=== PATIENT | female | born 1975 | race African-American/Black ===

== ENCOUNTER 2020-08-16 09:49 | Outpatient (CLI) | payer BC, SELFPAY ==
--- NOTE | ~2020-08-16 | US_ITS ---
EXAMINATION: US venous doppler [facility] DATE: 08/16/2020 10:18 INDICATION: Left lower limb pain TECHNIQUE: Jaquez scale images without and with compression and Doppler images of the left lower extrem ity veins were obtained. COMPARISON: None FINDINGS: The left common femoral vein, profunda femoral vein, femoral vein, popliteal vein, peroneal trunk, posterior tibial veins, and greater saphenous vein are patent. IMPRESSION: 1. Patent left lower extremity veins. No evidence of deep venous thrombosis. Reviewed, dictated and finalized at location A.
== END 2020-08-16 09:50 | disposition home or self-care (01) ==
PROVIDERS: PCP Family Medicine; Visit Provider Family Medicine
DX: M79.605 Pain in left leg (principal)
CPT/HCPCS: 93971

== ENCOUNTER 2020-08-19 17:09 | Emergency (ER) | payer BC, SELFPAY ==
--- NOTE | ~2020-08-19 | XR_ITS ---
EXAMINATION: XR knee LT min 4V EXAM DATE: 08/19/2020 18:03 INDICATION: Prior knee pain x 2 weeks/ slipped fell x 1 day. Initial encounter. TECHNIQUE: Left knee frontal, crosstable lateral, orthogonal oblique projections for interpretation. There is no prior study for comparison. FINDINGS: No evidence osteochondral defect or joint body in the left knee joint. Small joint effusio n. There are no acute fractures or dislocations identified. There is no subcutaneous gas. Some subc utaneous edema over the patellar tendon. There are no radiopaque foreign bodies. There is lateral va ricosity. There is mild tricompartmental primary osteoarthritis. IMPRESSION: 1. No left knee fracture. 2. Mild osteoarthritis. 3. Small joint effusion. Reviewed, dictated and finalized at location A.
[2020-08-19 17:24] VITALS: BP 135/84; PULSE 64; RESP 16; TEMP 36.2; O2SAT 100
--- NOTE | 2020-08-19 19:37 | ED.LOWEXIN ---
HPI - Extremity Injury (Lower) General Chief Complaint: Extremity Injury, Lower Stated Complaint: Left Knee Pain Time Seen by Provider: 08/19/20 18:59 Source: patient and RN notes reviewed Mode of arrival: other (Crutches) Limitations: no limitations History of Present Illness HPI Narrative: Patient presents today complaining of left knee pain x3 weeks. She injured her left knee again last night when she slipped and twisted it again. She has been nonweightbearing and using crutches today. She has an orthopedic appointment in 3 days, but the pain is so bad that she wanted to come to urgent care today and be evaluated. States the pain is mostly posterior. She has been using ice without relief. She currently rates her pain 12/01. MD complaint: knee injury Related Data Allergies Allergy/AdvReac Type Severity Reaction Status Date / Time amoxicillin [From Amoxil] Allergy Dyspnea / Verified 08/19/20 17:46 SOB aspirin Allergy Rash Verified 08/19/20 17:46 blueberry Allergy Swelling Verified 08/19/20 17:46 codeine Allergy Dyspnea / Verified 08/19/20 17:46 SOB Review of Systems Review of Systems: Narrative: CONSTITUTIONAL: Denies body aches, fever, chills, or sweats. EYES: Denies visual changes, redness, or discharge. ENT: Denies rhinorrhea, congestion, sore throat, or otalgia. CARDIOVASCULAR: Denies chest pain, palpitations, or edema. RESPIRATORY: Denies cough or dyspnea. GASTROINTESTINAL: Denies abdominal pain, nausea, vomiting, or diarrhea. GENITOURINARY: Denies dysuria or hematuria. SKIN: Denies rash, itching, or wounds. MUSCULOSKELETAL: Denies back pain, or myalgia.+ Left knee pain NEUROLOGIC: Denies headache, numbness, tingling, or weakness. PSYCH: Denies depression or anxiety. PMFSH Social History Social History Gender identity (if verbalized by the patient): Female Comments At time of signature, I have reviewed and agree with nursing past medical, surgical, social and family history unless otherwise noted. Please see nursing chart for further information. There is no relevant family history pertinent to the presenting complaint Exam Narrative: Exam Narrative: GENERAL: Well-appearing, well-nourished, and in no acute distress. HEAD: Normocephalic, atraumatic. EYES: EOMI. No redness or drainage. Conjunctivae normal. ENT: Mucous membranes pink and moist. NECK: Normal AROM. CHEST: No respiratory distress. EXTREMITIES: Left knee: Tenderness to the medial joint line and posterior knee. Difficult to assess edema due to patient's body habitus. Distal sensation intact. Capillary refill normal. Pedal pulse normal. Full range of motion of the ankle and all toes. Any movement of the knee causes patient pain. SKIN: Warm, dry, no rash. Capillary refill normal. Normal skin turgor. NEURO: No focal deficits. Alert and oriented x3. Gait steady. PSYCH: Normal affect. No signs of depression or anxiety. Course Vital Signs Vital signs: Vital Signs Temperature 97.2 F L 08/19/20 17:24 Pulse Rate 64 08/19/20 17:24 Respiratory Rate 16 08/19/20 17:24 Blood Pressure 135/84 08/19/20 17:24 Pulse Oximetry 100 08/19/20 17:24 Temperature 97.2 F L 08/19/20 17:24 Pulse Rate 64 08/19/20 17:24 Respiratory Rate 16 08/19/20 17:24 Blood Pressure 135/84 08/19/20 17:24 Pulse Oximetry 100 08/19/20 17:24 Reviewed. Pt has been instructed to follow up with her PCP regarding her elevated blood pressure today. Procedures Orthopedic Splinting/Casting Injury #1: Splinting/Casting Date: 08/19/20 Splinting/Casting Time: 19:15 Side: left Lower Extremity Immobilizer: knee immobilizer Pre-Procedure Neuro Vascular Exam: normal Post-Procedure Neuro Vascular Exam: normal Additional Comments: Placed by RN and star MDM - Extremity Injury (Lower) Differential Diagnosis Differential diagnosis: Likely other (Knee sprain, ligamental injury, meniscus tear, burs
== END 2020-08-19 19:20 | disposition home or self-care (01) ==
PROVIDERS: Emergency Provider Nurse Practitioner; PCP Family Medicine
DX: S89.92XA Unspecified injury of left lower leg, initial encounter (principal); X50.9XXA Other and unspecified overexertion or strenuous movements or postures, initial encounter
CPT/HCPCS: 73564; 99213; G0463; L1830

== ENCOUNTER 2020-09-03 15:25 | Outpatient (CLI) | payer BC, SELFPAY ==
--- NOTE | ~2020-09-03 | MM_ITS ---
EXAMINATION: MM screening chalo BI w roddy HISTORY: Screening mammogram TECHNIQUE: Craniocaudal and mediolateral oblique 3-D tomosynthesis images were obtained and synthetic 2-D images were generated. CAD analysis was submitted and interpreted. COMPARISON: None, baseline BREAST PARENCHYMAL COMPOSITION: There are scattered areas of fibroglandular density. FINDINGS: There is no evidence of suspicious mass, calcification, or architectural distortion to sugg est malignancy in either breast. IMPRESSION: 1. No mammographic evidence of malignancy. 2. Recommend routine screening mammography in one year. BI-RADS Category 1: Negative Reviewed, dictated and finalized at location A.
== END 2020-09-03 15:26 | disposition home or self-care (01) ==
LOC: ANHIMG 15:28
PROVIDERS: PCP Family Medicine; Visit Provider Family Medicine
DX: Z12.31 Encounter for screening mammogram for malignant neoplasm of breast (principal)
CPT/HCPCS: 77063; 77067

== ENCOUNTER 2020-11-08 12:47 | Outpatient (CLI) | payer BC, SELFPAY ==
--- NOTE | ~2020-11-08 | US_ITS ---
EXAMINATION: US FNA w image guidance, US FNA additional DATE: 11/08/2020 14:00 INDICATION: Nontoxic thyroid nodules COMPARISON: Outside institution ultrasound dated 10/11/2020. TECHNIQUE: A time-out was performed to verify the patient's name, date of , and procedure to be performed . The procedure and its benefits and risks were discussed with the patient. Risks specifically discus sed included bleeding and infection. The patient understood the risks and agreed to proceed. Attentio n was first turned to the left thyroid nodule. The left neck was prepped and draped in the usual ster ile manner. 3 mL 1% lidocaine was used for local anesthesia. 6 passes were made with a 25G needle i nto the lesion. Appropriate needle location was documented with continuous sonographic guidance. A sterile bandage was applied. Attention was then turned to the right thyroid nodule. The right side of the neck was sterilely prepped and draped. 3 mL 1% lidocaine was used for local anesthesia. 6 passe s were made with a 25G needle into the lesion. Appropriate needle location was documented with di nuous sonographic guidance. A sterile bandage was applied. There were no immediate complications. FINDINGS: Grayscale ultrasound images demonstrate biopsy needles advanced into first the previously noted 5.5 c m solid TI-RADS 3 left thyroid nodule. Subsequent images demonstrate biopsy needles advanced into the previous noted 4.3 cm TI-RADS 3 right thyroid nodule. IMPRESSION: 1. Successful ultrasound-guided fine needle aspiration of the previously noted 5.5 cm left thyroid a nd 4.3 cm right thyroid nodules. Reviewed, dictated and finalized at location A. IMPRESSION: 1. Successful ultrasound-guided fine needle aspiration of the previously noted 5.5 cm left thyroid and 4.3 cm right thyroid nodules.
== END 2020-11-08 12:48 | disposition home or self-care (01) ==
PROVIDERS: PCP Family Medicine
DX: E04.1 Nontoxic single thyroid nodule (principal)
CPT/HCPCS: 10005; 10006; 88173; 88305

== ENCOUNTER 2021-02-18 11:43 | Emergency (ER) | payer BC, SELFPAY ==
[2021-02-18 11:57] VITALS: BP 138/88; PULSE 73; RESP 16; TEMP 37; O2SAT 100
--- NOTE | 2021-02-18 12:21 | ED.URI ---
HPI - URI/Sore Throat General Chief Complaint: Upper Respiratory Infection Stated Complaint: cold sx Time Seen by Provider: 02/18/21 12:21 Source: patient, RN notes reviewed and old records reviewed Mode of arrival: ambulatory Limitations: no limitations History of Present Illness HPI Narrative: 45-year-old female presents to the [facility] with complaints of shortness of breath cold-like symptoms, sweating all the time, cough, generalized body aches. Patient states that she started symptoms on the went [place] the mall and tested for Covid on the , states that it was negative. Patient states that she is Covid vaccinated. Is not flu vaccinated. Has tried there a few DayQuil and NyQuil with minimal relief. Related Data Home Medications Medication Instructions Recorded Confirmed cyanocobalamin (vitamin B-12) mcg 02/18/21 ergocalciferol (vitamin D2) 02/18/21 escitalopram oxalate mg 02/18/21 hydrochlorothiazide 02/18/21 omeprazole 02/18/21 valacyclovir 02/18/21 Allergies Allergy/AdvReac Type Severity Reaction Status Date / Time amoxicillin [From Amoxil] Allergy Dyspnea / Verified 08/19/20 17:46 SOB aspirin Allergy Rash Verified 08/19/20 17:46 blueberry Allergy Swelling Verified 08/19/20 17:46 codeine Allergy Dyspnea / Verified 08/19/20 17:46 SOB Review of Systems Review of Systems: All systems reviewed & are unremarkable except as noted in HPI and below Constitutional: Constitutional: Reports as per HPI, Reports chills, Reports fatigue and Reports fever(s) Eyes: Eyes: Reports no additional eye complaints ENT: Reports as per HPI and Reports nasal congestion Cardiovascular: Cardiovascular: Reports no additional cardiovascular complaints and Denies chest pain Respiratory: Respiratory: Reports as per HPI, Denies chest congestion, Reports cough, Reports dyspnea and Denies wheezing Gastrointestinal: Gastrointestinal: Reports no additional gastrointestinal complaints, Denies abdominal pain, Denies nausea and Denies vomiting Musculoskeletal: Musculoskeletal: Reports as per HPI and Reports myalgias Integumentary/Breasts: Skin/Breast: Reports system reviewed and no additional complaints, except as docu Neurologic: Reports system reviewed and no additional complaints, except as documented Psychiatric: Psychiatric: Reports no additional psychiatric complaints Allergic/Immunologic: Allergic/Immunologic: Reports no additional allergic/immunologic complaints PMFSH Past Medical History Medical History Anxiety and depression H/O gastroesophageal reflux (GERD) Hypertension Social History Social History Gender identity (if verbalized by the patient): Female Comments At the time of my signature, I reviewed and agree with the nursing past medical, surgical, social, and family history. There is no relevant family history pertinent to the patient complaint. Exam Const: General: healthy appearing, no acute distress and alert Nutritional Appearance: well nourished and obese Orientation/consciousness: patient oriented x3 Limitations: no limitations HENMT: Head: normal to inspection Ears: external ears normal, TM's normal bilaterally and EAC's normal Eyes: Conjunctivae: conjunctivae normal Pupils: Equal, round and reactive pupils present Neck: Neck: normal visual inspection, no lymphadenopathy and no meningeal signs Chest: Chest palpation & inspection: normal inspection of the chest Resp: Effort & Inspection: normal respiratory effort and no use of accessory muscles Auscultation: clear to auscultation bilaterally, no crackles, no rales, no rhonchi and no wheezes Cardio: Rate: regular rate GI: GI Palp: Yes Soft to palpation and No Tenderness to palpation present (GI) Back/Spine/Pelvis: Back: no CVA tenderness Skin: General skin exam: normal color Rashes: no rashes Wounds: no wounds Neur
[2021-02-19 13:33] LABS: SARS-CoV-2 RNA PCR Negative
== END 2021-02-18 12:52 | disposition home or self-care (01) ==
PROVIDERS: Emergency Provider Nurse Practitioner
DX: B34.9 Viral infection, unspecified (principal); Z20.822 Contact with and (suspected) exposure to COVID-19; K21.9 Gastro-esophageal reflux disease without esophagitis; I10 Essential (primary) hypertension; F41.9 Anxiety disorder, unspecified; F32.A Depression, unspecified
CPT/HCPCS: 87804; 99213; C9803; G0463; U0003; U0005

== ENCOUNTER 2021-09-23 21:20 | Inpatient (IN) | payer BC, SELFPAY ==
--- NOTE | ~2021-09-23 | XR_ITS ---
EXAMINATION: XR abdomen obstructive series DATE: 09/26/2021 07:56 INDICATION: Small bowel obstruction. TECHNIQUE: Upright and supine views of the abdomen on 3 radiographs were obtained. COMPARISON: CT abdomen and pelvis 09/23/2021, abdomen radiographs 09/25/2021 FINDINGS: There are no dilated loops of bowel. The nasogastric tube tip is in the distal stomach. No free intraperitoneal gas. Surgical clips in the right upper quadrant are likely from cholecystectomy. There are inserts in the expected area of the fallopian tubes. IMPRESSION: 1. Normal bowel gas pattern. Reviewed, dictated and finalized at location A.
--- NOTE | ~2021-09-23 | XR_ITS ---
EXAMINATION: XR abdomen NG/feed tube insert DATE: 09/23/2021 23:57 INDICATION: Nasogastric tube placement. TECHNIQUE: An upright view of the abdomen was obtained. COMPARISON: CT abdomen and pelvis 09/23/2021 FINDINGS: The lower abdomen is excluded. There are dilated loops of small bowel. The colon is decompr essed. The nasogastric tube tip is in the stomach. IMPRESSION: 1. Nasogastric tube tip in the stomach. 2. Dilated small bowel, consistent with obstruction. Reviewed, dictated and finalized at location A.
--- NOTE | ~2021-09-23 | CT_ITS ---
EXAMINATION: CT abdomen pelvis w con DATE: 09/23/2021 22:42 INDICATION: diffuse abd pain, constipation, n/v TECHNIQUE: Computed tomography (CT) of the abdomen and pelvis was performed with 100 mL Omnipaque-350 intravenous contrast. Automated exposure control and iterative reconstruction technique were employe d. The dose-length product was 1410.10 mGy-cm. COMPARISON: None. FINDINGS: Lower thorax: Unremarkable Liver: Normal. Biliary/Gallbladder: Gallbladder is absent. No bile duct dilation. Pancreas: No mass or duct dilation. Spleen: Normal. Adrenals:No mass. Kidneys: No mass, stone, or hydronephrosis. GI tract: Diffusely dilated small bowel, transition point in the right lower quadrant in the terminal ileum. Normal appendix. Prior gastric bypass. Mesentery/Peritoneum: No ascites, mass, or free air. Retroperitoneum: No mass. Pelvis: Pelvic organs are within normal limits. Tubal ligation. Soft Tissues: Soft tissues and body wall unremarkable. Bones: No acute osseous finding. IMPRESSION: Distal small bowel obstruction, transition point in the terminal ileum. Reviewed, dictated and finalized at location K.
--- NOTE | ~2021-09-23 | XR_ITS ---
EXAMINATION: XR abdomen obstructive series DATE: 09/25/2021 09:21 INDICATION: Follow-up possible small bowel obstruction. TECHNIQUE: Supine and upright views of the abdomen. FINDINGS: Comparison to CT dated 09/23/2021 The visualized lung parenchyma is normal.. There is a nonobstructive bowel gas pattern. Gas and stool are seen throughout the colon to the level of the rectum. There is no free air. There is evidence f or prior tubal ligation. NG tube in the stomach. There are cholecystectomy clips. IMPRESSION: 1. No acute abdominal abnormality. Reviewed, dictated and finalized at location A.
[2021-09-23 21:23] VITALS: BP 163/116; PULSE 82; RESP 18; TEMP 36.6; O2SAT 98
--- NOTE | 2021-09-23 21:33 | ED.ABDPAIN ---
HPI - Abdominal Pain General Chief Complaint: Abdominal Pain <MARBELLA Paz Last Filed: 09/24/21 02:14> Stated Complaint: ABD PAIN <MARBELLA Paz Last Filed: 09/24/21 02:14> Time Seen by Provider: 09/23/21 21:24 <MARBELLA Paz Last Filed: 09/24/21 02:14> History of Present Illness HPI narrative: Patient is a 46-year-old female of cholecystectomy, gastric sleeve surgery, HTN, here via EMS for evaluation of generalized abdominal pain for the past 3 days. Patient states the pain is there all the time, is not worse after eating meals, and is severe in nature. She has attempted heating pad with mild relief of her symptoms. Additionally reporting chills, nausea and vomiting over the past 3 days, and states she is unable to keep anything down. Also has not had a bowel movement for the past 3 days. No chest pain, shortness of breath, syncope, diarrhea. <MARBELLA Paz Last Filed: 09/24/21 02:14> Related Data Home Medications: Home Medications Medication Instructions Recorded Confirmed cyanocobalamin (vitamin B-12) mcg 02/18/21 1,000 mcg tablet ergocalciferol (vitamin D2) 1,250 02/18/21 mcg (50,000 unit) capsule escitalopram oxalate 20 mg tablet mg 02/18/21 hydrochlorothiazide 25 mg tablet 02/18/21 omeprazole 20 mg capsule,delayed 02/18/21 release valacyclovir 500 mg tablet 02/18/21 <MARBELLA Paz Last Filed: 09/24/21 02:14> Allergies/Adverse Reactions: Allergies Allergy/AdvReac Type Severity Reaction Status Date / Time amoxicillin [From Amoxil] Allergy Dyspnea / Verified 08/19/20 17:46 SOB aspirin Allergy Rash Verified 08/19/20 17:46 blueberry Allergy Swelling Verified 08/19/20 17:46 codeine Allergy Dyspnea / Verified 08/19/20 17:46 SOB <MARBELLA Paz Last Filed: 09/24/21 02:14> Review of Systems Review of Systems: Gen: Reports chills. Denies fevers Eyes: Denies eye pain or visual change ENT: Denies congestion Respiratory: Denies shortness of breath or cough CV: Denies chest pain or palpitations GI: Reports abdominal pain, nausea, vomiting, constipation. Denies diarrhea denies burning, urgency, frequency or hematuria Musculoskeletal: Denies back pain or muscle pain Neuro: Denies numbness, tingling, weakness or focal weakness Skin: Denies rash Except as documented, all other systems reviewed and negative <Carmen Richardson PA-C - Last Filed: 09/24/21 02:14> [facility] Past Medical History Medical History: Medical History Anxiety and depression H/O gastroesophageal reflux (GERD) Hypertension <Carmen Richardson PA-C - Last Filed: 09/24/21 02:14> Social History Social History: Social History Gender identity (if verbalized by the patient): Female <Carmen Richardson PA-C - Last Filed: 09/24/21 02:14> Exam Narrative: APPEARANCE: No acute distress, nontoxic, resting in bed EYES: EOMI HEENT: Normocephalic, atraumatic, OMM RESPIRATORY: No respiratory distress Clear to auscultation bilaterally with no rhonchi wheezing or rales. CARDIOVASCULAR: Regular rate and rhythm without murmurs rubs or gallops. ABDOMINAL: Tender to palpation in epigastrium. Normoactive bowel sounds. Soft, nontender, nondistended, no rebound or guarding MUSCULOSKELETAL: Moves all extremities. No clubbing, cyanosis or edema. NEURO: Awake and alert. Following commands, speech normal, no focal deficits SKIN:: Warm, dry. No rashes lesions or abrasions PSYCHIATRIC: Normal affect/mood. <Carmen Richardson PA-C - Last Filed: 09/24/21 02:14> Course TELETYPEWRITER INSTALLER/PA Physician Supervision For this patient encounter, I reviewed the TELETYPEWRITER INSTALLER or PA documentation, treatment plan, and medical decision making; and I had [id number] time with this patient. GE
[2021-09-23] MEDS: SODIUM CHLORIDE 0.9% IV 1,000 ML 999 ML IV CONT (21:43)
[2021-09-23] MEDS: FAMOTIDINE 20 MG/2 ML VIAL IV PUSH (21:43)
[2021-09-23] MEDS: ONDANSETRON INJ 4 MG/2 ML VIAL IV PUSH ×2 (21:43→23:01)
[2021-09-23 21:44] VITALS: BP 185/97; PULSE 91; RESP 18; O2SAT 94
[2021-09-23 22:03] LABS: Basophils Percent Auto 0.1 % (0.2-1.2); Eosinophils Percent Auto 0.1 % (0-4.4); Hematocrit 43.6 % (37.0-47.0); Hemoglobin 14.4 g/dL (12.0-15.0); Immature Granulocyte Absolute 0.02 K/mm3 (0.00-0.031); Immature Granulocyte Percent A 0.2 % (0-0.5); Lymphocytes Absolute Auto 1.32 K/mm3 (0.9-3.2); Lymphocytes Percent Auto 11.5 % (18.3-44.2); Mean Corpuscular Hemoglobin 27.2 pg (26-34); Mean Corpuscular Volume 82.3 fl (80-100); Mean Platelet Volume 9.8 fl (7.4-10.4); Monocytes Absolute Auto 0.5 K/mm3 (0.1-0.6); Monocytes Percent Auto 4.5 % (2.6-8.5); Neutrophils Absolute Auto 9.6 K/mm3 (1.3-6.7); Neutrophils Percent Auto 83.6 % (45.5-73.1); Platelet Count Result 338 k/mm3 (150-375); Red Cell Distribution Width 13.2 % (11.5-14.5); White Blood Count 11.5 K/mm3 (4.5-10.0)
[2021-09-23 22:24] LABS: Alanine Aminotransferase 38 U/L (6-35); Albumin Level 4.4 g/dL (3.5-5.1); Alkaline Phosphatase 121 U/L (38-126); Anion Gap 12 mmol/L (8-16); Aspartate Amino Transferase 52 U/L (14-36); Bilirubin,Total 0.5 mg/dL (0.2-1.3); Blood Urea Nitrogen 14 mg/dL (7-17); Calcium 10.4 mg/dL (8.4-10.2); Carbon Dioxide 29 mmol/L (22-30); Chloride 97 mmol/L (98-107); Estimated CRCL calculation 199 ml/min; Estimated Glomerular Filt Rate > 60; Glucose 117 mg/dL (65-110); Lipase 158 U/L (23-300); Potassium 3.1 mmol/L (3.4-5.0); Sodium 138 mmol/L (137-145)
[2021-09-23] MEDS: MORPHINE SULFATE (*CRX) 4 MG/ML INJ IV PUSH (23:01)
[2021-09-23 23:12] LABS: Bacteria Urine Trace /hpf; Mucus Urine Rare /lpf; Squamous Epithelial Cell Urine Occasional /hpf (Few); WBC Urine 0-3 /hpf
[2021-09-23 23:18] LABS: Appearance Urine Clear (Clear); Bilirubin Urine 1+ (Negative); Color Urine Yellow (Yellow); Glucose Urine UA Negative (Negative); Ketones Urine 4+ mg/dL (Negative); Leukocyte Esterase Ur Negative LEU/UL (Negative); Nitrate Urine Negative (Negative); Protein Urine Trace mg/dL (Negative); Urobilinogen Urine 0.2 mg/dL (<2.0)
[2021-09-23 23:20] LABS: Add Urine Microscopic? YES; Blood Urine Trace (Negative)
[2021-09-24 00:11] LABS: SARS-CoV-2 RNA PCR Negative
[2021-09-24 00:32] LABS: Lactic Acid Reflex 0.9 mmol/L (0.7-2.0)
[2021-09-24] MEDS: SODIUM CHLORIDE 0.9% IV 1,000 ML 999 ML IV CONT ×2 (00:39→02:55)
[2021-09-24] MEDS: MORPHINE SULFATE (*CRX) 4 MG/ML INJ IV PUSH ×3 (00:41→06:23)
[2021-09-24 00:48] VITALS: BP 154/93; PULSE 105; RESP 18; O2SAT 98
[2021-09-24 01:09] LABS: Pregnancy On Board Control Positive; Urine Pregnancy Test Negative
--- NOTE | 2021-09-24 02:09 | ADMGEN ---
This patient, Pradip Bello, was admitted to 3 Med Surg Room 326-01 @ 0200. Patient/family oriented to hospital policies and general routines including ID bracelet, bed and alarms, visiting hours, pain management, procedures, bathroom and other care routines, personal items, smoking policy, room service/diet, and visiting hours. Information on how to activate the Rapid Response Team has been discussed. Patient/Family are encouraged to report perceived risks to care and to ask questions if they do not understand what they are told or what they should do.
[2021-09-24 02:15] VITALS: BP 145/75; PULSE 95; RESP 16; TEMP 36.3; O2SAT 98
--- NOTE | 2021-09-24 02:30 | PM.IMCN ---
Assessment and Plan Assessment and plan (1) Small bowel obstruction: Code(s): K56.609 - Unspecified intestinal obstruction, unspecified as to partial versus complete obstruction Status: Acute Assessment and Plan: Given the patient's prior surgical history small-bowel obstruction is likely due to adhesions. Patient has NG tube in place to low intermittent suction. Management per Surgical Service. (2) Hypertension: Code(s): I10 - Essential (primary) hypertension Status: Acute Assessment and Plan: The patient actually has not been on antihypertensives for the last 10 months. Her blood pressures were acutely elevated in the ER likely in response to her acute abdominal pain. With improvement in her pain the patient's blood pressures have essentially normalized. I do not anticipate the patient needing the hydralazine that has been ordered as needed. However patient may have hydralazine 10 mg q.4 hours as needed for systolic blood pressures greater than 160. (3) Dehydration: Code(s): E86.0 - Dehydration Status: Acute Assessment and Plan: The patient had received 2 L of normal saline in the ER. The patient remains tachycardic. She did have 4+ ketones in her urine the ER. Will give an additional 3 L of fluid and place patient on NS at 125 mL an hour. (4) Continuous tobacco abuse: Code(s): Z72.0 - Tobacco use Status: Acute Assessment and Plan: Nicotine patch has been provided if needed for symptoms of nicotine withdrawal. Plan Patient has been admitted as inpatient status. She will need greater than 2 midnight stay for resolution of small-bowel obstruction. HPI Data of Consult Consult date: 09/24/21 Requesting Physician: Berry Alanis MD Primary Care Provider: Leonidas FoleyMD Consult Narrative Narrative: Pradip Bello is a 46 year old female with a past medical history of obesity status post gastric sleeve surgery, cholecystectomy GERD and hypertension and hypothyroidism no longer on medications who presented to the ER with 3 days of abdominal pain. The patient reports that the bowel pain is crampy and generalized. She thought that it was related to her Sadie menopausal state. She reported that it felt like severe cramps but more generalized. On day 2 of symptoms she began having vomiting. Her emesis consisted of yellow material. She reported that a couple of her emesis did have some blood streaks after she had numerous episodes of emesis. She had never had symptoms like this before. She was having some episodes of chills but was associated with times of dry heaves. She denies any cough or congestion. She has not had a bowel movement in 3 days. She had not been able to eat or drink anything and thus did not notice any eliciting factors. She did try to take Pamprin, Tylenol and Aleve at home without relief in her symptoms. She tried using a heating pad which did not help her symptoms and the heating pad subsequently gave her 2 small sanchez to the side of her abdomen the size of eraser heads. She denies any urinary symptoms. She has not noticed any proceeding hematochezia or melena. On initial arrival to the ER patient's blood pressures were quite elevated but she was in severe pain. She has not been a on any antihypertensive since December of 2020. She reports her pain is a 9/10 in intensity and currently down to a 4/10 in intensity after morphine and in G-tube placement. The patient's blood pressures are currently down to 145/75 and she has not required any antihypertensives. She had her gastric sleeve procedure at [facility] in 2017. Prior to her surgery she was over 400 lb. She reported 1 point she did get down to approximately 180 lb but felt she was too thin. Has been maintaining her weight around 260 lb. Review of Systems Review of Systems: 12 systems were reviewed with pertinent positives and ne
[2021-09-24] MEDS: ONDANSETRON INJ 4 MG/2 ML VIAL IV PUSH ×2 (03:26→08:34)
[2021-09-24 04:00] VITALS: BP 143/87; PULSE 97; RESP 16; TEMP 36.7; O2SAT 100
[2021-09-24] MEDS: SODIUM CHLORIDE 0.9% IV 1,000 ML 125 ML IV CONT ×2 (04:01→11:30)
[2021-09-24 04:06] VITALS: BMI 37.3
[2021-09-24 08:00] VITALS: BP 142/46; PULSE 87; RESP 16; TEMP 36.3; O2SAT 96
[2021-09-24] MEDS: ENOXAPARIN 40 MG/0.4 ML SYRINGE SUB-Q (08:33)
[2021-09-24] MEDS: PANTOPRAZOLE SODIUM IV 40 MG VIAL IV PUSH (08:34)
[2021-09-24] MEDS: MORPHINE SULFATE (*CRX) 2 MG/ML INJ IV PUSH ×4 (08:36→18:48)
--- NOTE | 2021-09-24 09:23 | PM.IMHP ---
H&P: HPI History of Present Illness Date/Time: 09/24/21 09:23 Chief Complaint: Abdominal pain, vomiting Narrative: This is a 46-year-old female who presented to the ER last night via EMS from home for evaluation of abdominal pain. She reportedly had cramping abdominal pain starting 3 days ago. She initially thought this was related to her menstrual cycle. She took Tylenol and Aleve without relief. On Wednesday, she began vomiting and has been unable to keep any food or liquids down since. Her abdominal pain was generalized and cramping in nature. Her pain continued to worsen over the next few days. Yesterday, she also felt so weak she was unable to walk, which she felt was due to dehydration, therefore she called EMS to bring her to the ER. CT scan of the abdomen and pelvis showed evidence of small-bowel obstruction with a transition point in the distal ileum. Our service was contacted by the ED physician and she was admitted in the setting. Hospitalist was consulted for medical management. An NG tube has been placed since she is NPO. She is now seen on the medical floor. She reports her abdominal pain has improved with the IV morphine. She denies any flatus today or over the past few days. Her last bowel movement was Wednesday. She denies any history of a small-bowel obstruction. She had a laparoscopic gastric sleeve at [facility] 5 years ago, and a laparoscopic cholecystectomy about 2-3 years ago. She reportedly lost about 200 lbs following her gastric sleeve and has since regained 50 lbs back. Review of Systems Review of Systems: All systems reviewed & are unremarkable except as noted in HPI and below Constitutional: Constitutional: Reports as per HPI, Reports chills, Denies fatigue, Denies fever(s) and Reports weakness ( generalized weakness) Eyes: Eyes: Reports no additional eye complaints and Denies change in vision ENT: Reports system reviewed and no additional complaints, except as documented, Reports Normal hearing present and Denies dizziness Cardiovascular: Cardiovascular: Reports no additional cardiovascular complaints, Denies chest pain and Denies leg edema Respiratory: Respiratory: Reports no additional respiratory complaints, Denies cough and Denies dyspnea Gastrointestinal: Gastrointestinal: Reports as per HPI, Reports no additional gastrointestinal complaints, Reports abdominal pain, Denies coffee ground emesis, Reports constipation, Reports GI cramping, Reports nausea, Reports vomiting and Denies hematemesis Genitourinary: Genitourinary: Reports no additional female genitourinary complaints, Denies dysuria and Reports other ( premenopausal with sporadic periods) Musculoskeletal: Musculoskeletal: Reports no additional musculoskeletal complaints, Denies deformity and Denies joint swelling Integumentary/Breasts: Skin/Breast: Reports system reviewed and no additional complaints, except as docu Neurologic: Reports system reviewed and no additional complaints, except as documented, Denies dizziness, Denies focal weakness, Denies numbness and Denies tingling Psychiatric: Psychiatric: Reports no additional psychiatric complaints and Reports anxiety ( treated for anxiety) [facility] Past Medical History Medical History (Updated 09/24/21 @ 09:33 by JAJA Atkinson) Anxiety and depression Continuous tobacco abuse GERD (gastroesophageal reflux disease) Hypertension Not on antihypertensives since December 2020 Obesity Preop BMI 57.3. Current BMI down 37.3 Vitamin D deficiency Surgical History Surgical History History of knee surgery History of laparoscopic cholecystectomy (~2019) History of lymph node biopsy benign pathology History of sleeve gastrectomy (~2017) At [facility] Family History Family History Mother Hypertension Cerebrovascular accident Diabetes alma
[2021-09-24 10:00] LABS: Basophils Percent Auto 0.1 % (0.2-1.2); Hematocrit 37.3 % (37.0-47.0); Hemoglobin 11.8 g/dL (12.0-15.0); Immature Granulocyte Absolute 0.02 K/mm3 (0.00-0.031); Immature Granulocyte Percent A 0.2 % (0-0.5); Lymphocytes Absolute Auto 1.49 K/mm3 (0.9-3.2); Lymphocytes Percent Auto 18.4 % (18.3-44.2); Mean Corpuscular HGB Conc 31.6 g/dl (32-36); Mean Corpuscular Hemoglobin 26.9 pg (26-34); Mean Corpuscular Volume 85.2 fl (80-100); Mean Platelet Volume 9.9 fl (7.4-10.4); Monocytes Absolute Auto 0.7 K/mm3 (0.1-0.6); Monocytes Percent Auto 8.9 % (2.6-8.5); Neutrophils Absolute Auto 5.8 K/mm3 (1.3-6.7); Neutrophils Percent Auto 72.4 % (45.5-73.1); Platelet Count Result 272 k/mm3 (150-375); Red Blood Count 4.38 M/mm3 (4.2-5.4); Red Cell Distribution Width 13.5 % (11.5-14.5); White Blood Count 8.1 K/mm3 (4.5-10.0)
[2021-09-24 10:11] LABS: Lactic Acid Reflex 0.6 mmol/L (0.7-2.0)
[2021-09-24 10:14] LABS: Anion Gap 10 mmol/L (8-16); Blood Urea Nitrogen 9 mg/dL (7-17); Calcium 8.8 mg/dL (8.4-10.2); Carbon Dioxide 26 mmol/L (22-30); Chloride 103 mmol/L (98-107); Estimated CRCL calculation 199 ml/min; Estimated Glomerular Filt Rate > 60; Glucose 87 mg/dL (65-110); Magnesium 1.7 mg/dL (1.6-2.3); Sodium 139 mmol/L (137-145)
[2021-09-24 11:37] VITALS: BP 143/76; PULSE 96; RESP 16; TEMP 36.1; O2SAT 94
[2021-09-24] MEDS: POTASSIUM CHLORIDE INJ 40 MEQ in SODIUM CHLORIDE 0.9% IV 500 ML 130 MEQ IVPB (11:59)
[2021-09-24] MEDS: BISACODYL 10 MG SUPPOSITORY RECTAL (14:15)
--- NOTE | 2021-09-24 15:16 | PM.IMPN ---
Progress Note: A&P Assessment and Plan (1) Small bowel obstruction: Code(s): K56.609 - Unspecified intestinal obstruction, unspecified as to partial versus complete obstruction Status: Acute Assessment and Plan: Patient presented with abdominal pain, nausea, and vomiting CT of the abdomen/pelvis on presentation showed distal small-bowel obstruction with transition point in the terminal ileum Suspect secondary to adhesions due to patient's prior abdominal surgical history Continue with NG decompression Appreciate general surgery consultation NPO diet. Continue with IV fluids while NPO Analgesics available as needed Continue with serial abdominal exams Consider small-bowel follow-through per General surgery recommendation (2) Hypertension: Code(s): I10 - Essential (primary) hypertension Status: Acute Assessment and Plan: Blood pressures have been elevated likely secondary to pain The patient has been off her antihypertensives for the past 10 months Last BP was 143/76 Continue with p.r.n. hydralazine as needed for systolic BP >160 Monitor BP trends Consider restarting p.o. antihypertensive if BP remains elevated with adequate pain control (3) Dehydration: Code(s): E86.0 - Dehydration Status: Acute Assessment and Plan: Resolved. Patient has been adequately rehydrated with IV fluids Continue with gentle IV fluids while NPO (4) Continuous tobacco abuse: Code(s): Z72.0 - Tobacco use Status: Acute Assessment and Plan: Patient smokes 1 pack per day Declines need for nicotine patch Patient educated on tobacco cessation (5) Hypokalemia: Code(s): E87.6 - Hypokalemia Status: Acute Assessment and Plan: Potassium 3.0 today Likely due to NPO diet Supplement potassium and monitor levels closely Subjective Date/time seen: 09/24/21 15:16 Interval history: Date of service: 09/24/2021 Pradip Bello is a 46-year-old female with a history of tobacco abuse, anxiety, depression, GERD, gastric sleeve, hypertension who is seen in follow-up for small bowel obstruction. She feels that she is slowly improving today. Last night she had excruciating pain that she rated as 11/10. She has been taking pain medication around the clock and currently rates her pain as 3/10. She denies nausea or vomiting. She does endorse a sore throat related to the NG tube. She does not want to try Chloraseptic spray to try to improve this issue. She is not passing any flatus. Her last bowel movement was Wednesday. She denies urinary symptoms. Denies shortness breath, cough, or chest pain. Review of Systems Review of Systems: All systems reviewed & are unremarkable except as noted in HPI and below Exam Narrative: General: Well-nourished, well-appearing 46-year-old female, sitting up in bed, comfortable, NARD Neuro: awake, alert and oriented x4, speech clear, no focal neuro deficits noted HEENMT: normocephalic, atraumatic, EOMI, sclerae anicteric, moist oral mucosa Respiratory: clear to auscultation bilaterally, nonlabored breathing Cardio: regular rate, regular rhythm with S1-S2 Abdomen: nondistended, hypoactive bowel sounds, soft, nontender to palpation Extremities: no edema, erythema, or tenderness to palpation, DP pulses 2+ bilaterally Skin: no rashes or lesions, warm and dry Psych: appropriate mood and affect, judgment and insight intact Objective Data Vital Signs Vital Signs: Vital Signs - 24 hr 09/23/21 21:23 09/23/21 21:44 09/24/21 00:48 Temperature 97.9 F Pulse Rate 82 91 105 H Respiratory Rate 18 18 18 Blood Pressure 163/116 H 185/97 H 154/93 H Pulse Oximetry 98 94 98 Oxygen Delivery Room Air 09/24/21 02:15 09/24/21 04:00 09/24/21 04:00 Temperature 97.4 F L 98.0 F Pulse Rate 95 97 Respiratory Rate 16 16 Blood Pressure 145/75 H 143/87 H Pulse Oximetry 98 100 Oxygen Delivery Room A
[2021-09-24 20:00] VITALS: BP 132/59; PULSE 85; RESP 18; TEMP 35.8; O2SAT 100
[2021-09-24] MEDS: SODIUM CHLORIDE 0.9% IV 1,000 ML 110 ML IV CONT (21:42)
[2021-09-25] VITALS: BP 130/67; PULSE 79; RESP 18; TEMP 36.1; O2SAT 100
[2021-09-25] MEDS: MORPHINE SULFATE (*CRX) 2 MG/ML INJ IV PUSH ×4 (01:00→21:37)
[2021-09-25 04:00] VITALS: BP 124/67; PULSE 77; RESP 18; TEMP 35.9; O2SAT 100
[2021-09-25 07:58] LABS: Hematocrit 34.6 % (37.0-47.0); Hemoglobin 10.7 g/dL (12.0-15.0); Mean Corpuscular HGB Conc 30.9 g/dl (32-36); Mean Corpuscular Hemoglobin 27.1 pg (26-34); Mean Corpuscular Volume 87.6 fl (80-100); Mean Platelet Volume 10.1 fl (7.4-10.4); Platelet Count Result 253 k/mm3 (150-375); Red Blood Count 3.95 M/mm3 (4.2-5.4); Red Cell Distribution Width 13.6 % (11.5-14.5); White Blood Count 5.9 K/mm3 (4.5-10.0)
[2021-09-25 08:00] VITALS: BP 148/56; PULSE 57; RESP 18; TEMP 36.1; O2SAT 95
[2021-09-25 08:17] LABS: Anion Gap 14 mmol/L (8-16); Blood Urea Nitrogen 7 mg/dL (7-17); Calcium 8.6 mg/dL (8.4-10.2); Carbon Dioxide 22 mmol/L (22-30); Chloride 105 mmol/L (98-107); Estimated CRCL calculation 199 ml/min; Estimated Glomerular Filt Rate > 60; Glucose 57 mg/dL (65-110); Magnesium 1.6 mg/dL (1.6-2.3); Sodium 141 mmol/L (137-145)
[2021-09-25 08:29] LABS: Thyroid Stimulating Hormone < 0.015 uIU/mL (0.465-4.680)
[2021-09-25] MEDS: ENOXAPARIN 40 MG/0.4 ML SYRINGE SUB-Q (08:45)
[2021-09-25] MEDS: PANTOPRAZOLE SODIUM IV 40 MG VIAL IV PUSH (09:21)
[2021-09-25] MEDS: DEXTROSE 50% 25 GM/50 ML SYRINGE IV PUSH (09:21)
[2021-09-25] MEDS: POTASSIUM CHLORIDE INJ 40 MEQ in SODIUM CHLORIDE 0.9% IV 500 ML 130 MEQ IVPB (09:22)
[2021-09-25 11:00] LABS: Glucose Point of Care 75 mg/dl (65-105)
[2021-09-25 12:00] VITALS: BP 156/80; PULSE 81; RESP 18; TEMP 36.1; O2SAT 100
[2021-09-25] MEDS: MAGNESIUM HYDROXIDE SUSP 30 ML UDC FEED TUBE (12:00)
--- NOTE | 2021-09-25 14:49 | P.PNIM_ITS ---
Progress Note: A&P Assessment and Plan (1) Small bowel obstruction: Code(s): K56.609 - Unspecified intestinal obstruction, unspecified as to partial versus complete obstruction Status: Acute Assessment and Plan: Patient presented with abdominal pain, nausea, and vomiting * CT of the abdomen/pelvis on presentation showed distal small-bowel obstruction with transition point in the terminal ileum * Suspect secondary to adhesions due to patient's prior abdominal surgical history * Continue with NG decompression * Appreciate general surgery consultation * NPO diet with ice chips. Continue with IV fluids while NPO. Advance diet per general surgery recommendations * Analgesics available as needed * Continue with serial abdominal exams * Abdominal x-ray today revealed nonobstructive bowel gas patter. * Consider small-bowel follow-through per General surgery recommendation (2) Hypertension: Code(s): I10 - Essential (primary) hypertension Status: Acute Assessment and Plan: Blood pressures have been elevated likely secondary to pain * The patient has been off her antihypertensives for the past 10 months * Last BP was 148/56 * Continue with p.r.n. hydralazine as needed for systolic BP >160 * Monitor BP trends * Consider restarting p.o. antihypertensive if BP remains elevated with adequate pain control (3) Dehydration: Code(s): E86.0 - Dehydration Status: Acute Assessment and Plan: Resolved. * Patient has been adequately rehydrated with IV fluids * Continue with gentle IV fluids while NPO (4) Continuous tobacco abuse: Code(s): Z72.0 - Tobacco use Status: Acute Assessment and Plan: Patient smokes 1 pack per day * Declined need for nicotine patch * Patient educated on tobacco cessation (5) Hypokalemia: Code(s): E87.6 - Hypokalemia Status: Acute Assessment and Plan: Potassium 3.0 today * Likely due to NPO diet * Supplement potassium and monitor levels closely (6) Hypoglycemia: Code(s): E16.2 - Hypoglycemia, unspecified Status: Acute Assessment and Plan: Glucose 57 this morning * Secondary to NPO status * IV fluids changed to [id number] * Suspect will resolve when diet is advanced Subjective Date/time seen: 09/25/21 14:49 Interval history: Date of service: 09/25/2021 Pradip Bello is a 46-year-old female with a history of tobacco abuse, anxiety, depression, GERD, gastric sleeve, hypertension who is seen in follow-up for small bowel obstruction. She feels better today. She did have some abdominal discomfort after she got up and walked around a bit today. She rated this abdominal pain about 4/10. No she feels comfortable. She did have a bowel movement yesterday that she stated was runny. No bowel movements today and she is not passing flatus. She denies nausea or vomiting. She still endorses sore throat related to her NG tube. She denies chest pain. Denies fever, chills, dizziness, lightheadedness, weakness Review of Systems Review of Systems: All systems reviewed & are unremarkable except as noted in HPI and below Exam Narrative: General: Well-nourished, well-appearing 46-year-old female, sitting up in bed, comfortable, NARD Neuro: awake, alert and oriented x4, speech clear, no focal neuro deficits noted HEENMT: normocephalic, atraumatic, EOMI, sclerae anicteric, moist oral mucosa Respiratory: clear to auscultation bilaterally, nonlab
--- NOTE | 2021-09-25 14:49 | PM.IMPN ---
Progress Note: A&P Assessment and Plan (1) Small bowel obstruction: Code(s): K56.609 - Unspecified intestinal obstruction, unspecified as to partial versus complete obstruction Status: Acute Assessment and Plan: Patient presented with abdominal pain, nausea, and vomiting CT of the abdomen/pelvis on presentation showed distal small-bowel obstruction with transition point in the terminal ileum Suspect secondary to adhesions due to patient's prior abdominal surgical history Continue with NG decompression Appreciate general surgery consultation NPO diet with ice chips. Continue with IV fluids while NPO. Advance diet per general surgery recommendations Analgesics available as needed Continue with serial abdominal exams Abdominal x-ray today revealed nonobstructive bowel gas patter. Consider small-bowel follow-through per General surgery recommendation (2) Hypertension: Code(s): I10 - Essential (primary) hypertension Status: Acute Assessment and Plan: Blood pressures have been elevated likely secondary to pain The patient has been off her antihypertensives for the past 10 months Last BP was 148/56 Continue with p.r.n. hydralazine as needed for systolic BP >160 Monitor BP trends Consider restarting p.o. antihypertensive if BP remains elevated with adequate pain control (3) Dehydration: Code(s): E86.0 - Dehydration Status: Acute Assessment and Plan: Resolved. Patient has been adequately rehydrated with IV fluids Continue with gentle IV fluids while NPO (4) Continuous tobacco abuse: Code(s): Z72.0 - Tobacco use Status: Acute Assessment and Plan: Patient smokes 1 pack per day Declined need for nicotine patch Patient educated on tobacco cessation (5) Hypokalemia: Code(s): E87.6 - Hypokalemia Status: Acute Assessment and Plan: Potassium 3.0 today Likely due to NPO diet Supplement potassium and monitor levels closely (6) Hypoglycemia: Code(s): E16.2 - Hypoglycemia, unspecified Status: Acute Assessment and Plan: Glucose 57 this morning Secondary to NPO status IV fluids changed to [id number] Suspect will resolve when diet is advanced Subjective Date/time seen: 09/25/21 14:49 Interval history: Date of service: 09/25/2021 Pradip Bello is a 46-year-old female with a history of tobacco abuse, anxiety, depression, GERD, gastric sleeve, hypertension who is seen in follow-up for small bowel obstruction. She feels better today. She did have some abdominal discomfort after she got up and walked around a bit today. She rated this abdominal pain about 4/10. No she feels comfortable. She did have a bowel movement yesterday that she stated was runny. No bowel movements today and she is not passing flatus. She denies nausea or vomiting. She still endorses sore throat related to her NG tube. She denies chest pain. Denies fever, chills, dizziness, lightheadedness, weakness Review of Systems Review of Systems: All systems reviewed & are unremarkable except as noted in HPI and below Exam Narrative: General: Well-nourished, well-appearing 46-year-old female, sitting up in bed, comfortable, NARD Neuro: awake, alert and oriented x4, speech clear, no focal neuro deficits noted HEENMT: normocephalic, atraumatic, EOMI, sclerae anicteric, moist oral mucosa Respiratory: clear to auscultation bilaterally, nonlabored breathing Cardio: regular rate, regular rhythm with S1-S2 Abdomen: nondistended, normoactive bowel sounds, soft, nontender to palpation Extremities: no edema, erythema, or tenderness to palpation, DP pulses 2+ bilaterally Skin: no rashes or lesions, warm and dry Psych: appropriate mood and affect, judgment and insight intact Objective Data Vital Signs Vital Signs: Vital Signs - 24 hr 09/24/21 20:00 09/25/21 00:00 09/25/21 04:00 Temperature 96.4 F L 96.9 F
[2021-09-25] MEDS: KCL 40 MEQ/D5/0.9% SOD CHL 1,000 ML 110 ML IV CONT (14:50)
[2021-09-25 16:00] VITALS: BP 146/80; PULSE 78; RESP 18; TEMP 36.6; O2SAT 100
--- NOTE | 2021-09-25 17:53 | PM.PNGS ---
Progress Note: A&P Assessment and Plan (1) Small bowel obstruction: Code(s): K56.609 - Unspecified intestinal obstruction, unspecified as to partial versus complete obstruction Status: Acute Assessment and Plan: This seems to be resolving. Also, I went over today's x-ray and her CT scan with Dr. Castillo in Radiology. He does not see a clear transition zone on the CT and would of called this ileus versus partial small-bowel obstruction. All gas seemed to have cleared from the small bowel and there is gas in the rectum today on her plain films. Therefore will give the patient milk a magnesia down the NG tube in clamped for 2 hours. If patient begins having bowel function and still feels well in the morning could consider removing NG and proceeding to diet. If patient is worse will consider small-bowel follow-through. (2) Hypoglycemia: Code(s): E16.2 - Hypoglycemia, unspecified Status: Acute Assessment and Plan: Patient's IV now switched to D5 normal saline +40 mEq of KCl. (3) Hypokalemia: Code(s): E87.6 - Hypokalemia Status: Acute Assessment and Plan: Will repeat potassium this evening after a K+ rider. (4) Obesity (BMI 30-39.9): Code(s): E66.9 - Obesity, unspecified Status: Acute (5) Continuous tobacco abuse: Code(s): Z72.0 - Tobacco use Status: Acute Assessment and Plan: Will encourage patient to quit smoking if possible. (6) Dehydration: Code(s): E86.0 - Dehydration Status: Acute Assessment and Plan: Improved on IV fluids. (7) Hypertension: Code(s): I10 - Essential (primary) hypertension Status: Acute Assessment and Plan: Being monitored by Medicine consultants. Will get hydralazine if goes over 160 systolic. Subjective Subjective Date/Time Seen: 09/25/21 17:53 Patient reports: no new complaints, no flatus and bowel movement (X1 yesterday 3-4 hours after a suppository.) Interval history: Pt states feels better today.? She did have some abdominal discomfort after she got up and walked around a bit.? When I saw her she had not been walking in the hallway yet but her nurse and I talked and she will be doing that more. She rated this abdominal pain about 4/10.? No she feels comfortable.? She did have a bowel movement yesterday that she stated was runny.? No bowel movements today and she is not passing flatus.? She denies nausea or vomiting.? She still endorses sore throat related to her NG tube.? She denies chest pain.? Denies fever, chills, lightheadedness, or weakness. Further discussion reveals that the patient did not have a transabdominal tubal ligation. But rather a hysteroscopy with coils inserted into the tubes for sterilization. Review of Systems Review of Systems: All systems reviewed & are unremarkable except as noted in HPI and below Constitutional: Constitutional: Reports as per HPI, Denies chills and Denies fever(s) Cardiovascular: Cardiovascular: Denies chest pain and Denies dyspnea Respiratory: Respiratory: Reports no additional respiratory complaints and Denies dyspnea Gastrointestinal: Gastrointestinal: Reports as per HPI Musculoskeletal: Musculoskeletal: Reports no additional musculoskeletal complaints Neurologic: Denies memory loss Psychiatric: Psychiatric: Denies anxiety and Denies memory loss Exam Const: General: cooperative, comfortable, alert and awake Orientation/consciousness: patient oriented x3 HENMT: Head: normal to inspection Mouth: Yes moist mucous membranes Eyes: Sclera: sclerae normal Pupils: Equal, round and reactive pupils present Neck: Neck: normal visual inspection and no JVD Chest: Chest palpation & inspection: normal inspection of the chest Resp: Effort & Inspection: normal respiratory effort Auscultation: clear to auscultation bilaterally GI: Inspection: normal to inspection, Pannus present, obesity, scar ( See d
[2021-09-25 18:06] LABS: Potassium 3.9 mmol/L (3.4-5.0)
[2021-09-25] MEDS: MAGNESIUM SULF 2 GM/WATER 50ML 2 GM/50 ML BAG IVPB (18:57)
[2021-09-25 20:00] VITALS: BP 149/76; PULSE 77; RESP 16; TEMP 36.7; O2SAT 100
[2021-09-26] VITALS: BP 147/81; PULSE 83; RESP 14; TEMP 36.3; O2SAT 100
[2021-09-26] MEDS: KCL 40 MEQ/D5/0.9% SOD CHL 1,000 ML 110 ML IV CONT (00:49)
[2021-09-26 04:00] VITALS: BP 152/94; PULSE 73; RESP 14; TEMP 36.1; O2SAT 100
[2021-09-26] MEDS: MORPHINE SULFATE (*CRX) 2 MG/ML INJ IV PUSH (04:49)
[2021-09-26 06:47] LABS: Hematocrit 34.5 % (37.0-47.0); Hemoglobin 10.8 g/dL (12.0-15.0); Mean Corpuscular HGB Conc 31.3 g/dl (32-36); Mean Corpuscular Hemoglobin 27.6 pg (26-34); Mean Platelet Volume 10.2 fl (7.4-10.4); Platelet Count Result 243 k/mm3 (150-375); Red Blood Count 3.92 M/mm3 (4.2-5.4); Red Cell Distribution Width 13.6 % (11.5-14.5); White Blood Count 4.9 K/mm3 (4.5-10.0)
[2021-09-26 07:08] LABS: Anion Gap 9 mmol/L (8-16); Blood Urea Nitrogen 4 mg/dL (7-17); Calcium 8.5 mg/dL (8.4-10.2); Carbon Dioxide 22 mmol/L (22-30); Chloride 110 mmol/L (98-107); Estimated CRCL calculation 254 ml/min; Estimated Glomerular Filt Rate > 60; Glucose 105 mg/dL (65-110); Potassium 3.8 mmol/L (3.4-5.0); Sodium 141 mmol/L (137-145)
[2021-09-26 09:23] LABS: Thyroid Stimulating Hormone Reflex < 0.015 uIU/mL (0.465-4.68)
[2021-09-26] MEDS: ENOXAPARIN 40 MG/0.4 ML SYRINGE SUB-Q (09:37)
[2021-09-26] MEDS: PANTOPRAZOLE 40 MG TABLET PO (09:37)
--- NOTE | 2021-09-26 11:35 | P.PNIM_ITS ---
Progress Note: A&P Assessment and Plan (1) Small bowel obstruction: Code(s): K56.609 - Unspecified intestinal obstruction, unspecified as to partial versus complete obstruction Status: Acute Assessment and Plan: Patient presented with abdominal pain, nausea, and vomiting * CT of the abdomen/pelvis on presentation showed distal small-bowel obstruction with transition point in the terminal ileum * Suspect secondary to adhesions due to patient's prior abdominal surgical history * General surgery managing * NG removed this morning * Patient tolerating clear liquids. Will advance to full liquids for lunch * IV fluids discontinued as patient is tolerating PO intake. * Analgesics available as needed * Abdominal x-ray today revealed nonobstructive bowel gas patter. (2) Hypertension: Code(s): I10 - Essential (primary) hypertension Status: Acute Assessment and Plan: Blood pressures have been elevated likely secondary to pain * The patient has been off her antihypertensives for the past 10 months * Last BP was 152/94 * Will need to follow up with PCP next week for BP recheck. If remaining elevated will likely need to be restarted on PO antihypertensives. (3) Dehydration: Code(s): E86.0 - Dehydration Status: Acute Assessment and Plan: Resolved. * Patient was adequately rehydrated with IV fluids (4) Continuous tobacco abuse: Code(s): Z72.0 - Tobacco use Status: Acute Assessment and Plan: Patient smokes 1 pack per day * Declined need for nicotine patch during admission * Patient educated on tobacco cessation for 4 minutes * She is motivated to quit smoking. (5) Hypokalemia: Code(s): E87.6 - Hypokalemia Status: Acute Assessment and Plan: Resolved. * Potassium 3.8 today * Do not anticipate further issues as diet has been advanced. (6) Hypoglycemia: Code(s): E16.2 - Hypoglycemia, unspecified Status: Acute Assessment and Plan: Resolved. * Secondary to NPO status * Do not anticipate further issues as diet has been advanced. (7) Hyperthyroidism: Code(s): E05.90 - Thyrotoxicosis, unspecified without thyrotoxic crisis or storm Status: Acute Assessment and Plan: TSH is undetectable and T4 is slightly elevated at 4.6 * Patient has history of benign thyroid nodules * She is being actively managed by endocrinology * States she was told to stop taking methimazole. This is not on her recent medication prescriptions. * She will need repeat TSH with reflex and prompt Endocrinology follow up in 1 week. Patient made aware of need for follow up Subjective Date/time seen: 09/26/21 11:35 Interval history: Date of service: 09/26/2021 Pradip Bello is a 46-year-old female with a history of tobacco abuse, anxiety, depression, GERD, gastric sleeve, hypertension who is seen in follow-up for small bowel obstruction. She is doing better today. She had her NG tube removed and she was able to tolerate clear liquids for breakfast. She does still endorse some mild mid abdominal discomfort. She states this might be due to gas. She would like to try some Tylenol to see if this helps. She denies nausea, vomiting, fever, chills. No shortness of breath, cough, or chest pain. She has been able to get up and walk independently. Denies dizziness or lighth eadedness. Review of Systems Review of Systems: All systems reviewed & are unremarkable except as noted in
--- NOTE | 2021-09-26 11:35 | PM.IMPN ---
Progress Note: A&P Assessment and Plan (1) Small bowel obstruction: Code(s): K56.609 - Unspecified intestinal obstruction, unspecified as to partial versus complete obstruction Status: Acute Assessment and Plan: Patient presented with abdominal pain, nausea, and vomiting CT of the abdomen/pelvis on presentation showed distal small-bowel obstruction with transition point in the terminal ileum Suspect secondary to adhesions due to patient's prior abdominal surgical history General surgery managing NG removed this morning Patient tolerating clear liquids. Will advance to full liquids for lunch IV fluids discontinued as patient is tolerating PO intake. Analgesics available as needed Abdominal x-ray today revealed nonobstructive bowel gas patter. (2) Hypertension: Code(s): I10 - Essential (primary) hypertension Status: Acute Assessment and Plan: Blood pressures have been elevated likely secondary to pain The patient has been off her antihypertensives for the past 10 months Last BP was 152/94 Will need to follow up with PCP next week for BP recheck. If remaining elevated will likely need to be restarted on PO antihypertensives. (3) Dehydration: Code(s): E86.0 - Dehydration Status: Acute Assessment and Plan: Resolved. Patient was adequately rehydrated with IV fluids (4) Continuous tobacco abuse: Code(s): Z72.0 - Tobacco use Status: Acute Assessment and Plan: Patient smokes 1 pack per day Declined need for nicotine patch during admission Patient educated on tobacco cessation for 4 minutes She is motivated to quit smoking. (5) Hypokalemia: Code(s): E87.6 - Hypokalemia Status: Acute Assessment and Plan: Resolved. Potassium 3.8 today Do not anticipate further issues as diet has been advanced. (6) Hypoglycemia: Code(s): E16.2 - Hypoglycemia, unspecified Status: Acute Assessment and Plan: Resolved. Secondary to NPO status Do not anticipate further issues as diet has been advanced. (7) Hyperthyroidism: Code(s): E05.90 - Thyrotoxicosis, unspecified without thyrotoxic crisis or storm Status: Acute Assessment and Plan: TSH is undetectable and T4 is slightly elevated at 4.6 Patient has history of benign thyroid nodules She is being actively managed by endocrinology States she was told to stop taking methimazole. This is not on her recent medication prescriptions. She will need repeat TSH with reflex and prompt Endocrinology follow up in 1 week. Patient made aware of need for follow up Subjective Date/time seen: 09/26/21 11:35 Interval history: Date of service: 09/26/2021 Pradip Bello is a 46-year-old female with a history of tobacco abuse, anxiety, depression, GERD, gastric sleeve, hypertension who is seen in follow-up for small bowel obstruction. She is doing better today. She had her NG tube removed and she was able to tolerate clear liquids for breakfast. She does still endorse some mild mid abdominal discomfort. She states this might be due to gas. She would like to try some Tylenol to see if this helps. She denies nausea, vomiting, fever, chills. No shortness of breath, cough, or chest pain. She has been able to get up and walk independently. Denies dizziness or lightheadedness. Review of Systems Review of Systems: All systems reviewed & are unremarkable except as noted in HPI and below Exam Narrative: General: Well-nourished, well-appearing 46-year-old female, sitting up in bed, comfortable, NARD Neuro: awake, alert and oriented x4, speech clear, no focal neuro deficits noted HEENMT: normocephalic, atraumatic, EOMI, sclerae anicteric, moist oral mucosa Respiratory: clear to auscultation bilaterally, nonlabored breathing Cardio: regular rate, regular rhythm with S1-S2 Abdomen: nondistended, normoactive bowel sounds, soft
[2021-09-26] MEDS: ACETAMINOPHEN 325 MG TABLET 650 MG PO (11:52)
--- NOTE | 2021-09-26 14:52 | PM.DS ---
DS: Admitting Diagnosis Discharge Date 09/26/2021 Admitting Diagnosis small-bowel obstruction DS: Discharge Diagnosis Discharge Diagnosis (1) Small bowel obstruction: Code(s): K56.609 - Unspecified intestinal obstruction, unspecified as to partial versus complete obstruction Status: Acute Assessment and Plan: review of the patient's CT scan and subsequent plain abdominal films with the radiologist on day 2 of her hospital stay revealed that the consulting radiologist would have called her original problem ileus versus partial small-bowel obstruction rather than complete small bowel obstruction with transition zone in the right lower quadrant. Was also noted that the patient had sterilization by placement of metallic coils in the fallopian tubes via hysteroscopy rather than a laparoscopic tubal ligation. These have not been taken off the market patient is aware. It is doubtful because they were internal whether they would cause inflammation leading to any adhesions in the right lower quadrant but cannot rule this out completely. Prior to discharge at thorough discussion with the patient what to watch for for recurrence and let her know that she may have had a viral gastroenteritis of bacterial gastroenteritis or some type of a adhesive band like problem in the right lower quadrant leading to partial obstruction that resolved with conservative management. (2) Hyperthyroidism: Code(s): E05.90 - Thyrotoxicosis, unspecified without thyrotoxic crisis or storm Status: Acute Assessment and Plan: Patient apparently had been on thyroid medication but then taken off of it. Had not had her thyroid levels checked for some time so a TSH was checked as screening. This turned out to be very low. Please see hospitalist's notes on further recommendations. (3) Hypoglycemia: Code(s): E16.2 - Hypoglycemia, unspecified Status: Acute Assessment and Plan: One time while the patient was NPO her blood sugars dropped to around 50 and D50 had to be given. Subsequently we change her IV to D5 normal saline with potassium and many of her electrolyte abnormalities improved. (4) Hypokalemia: Code(s): E87.6 - Hypokalemia Status: Acute Assessment and Plan: Patient was initially hypokalemic and had to have several infusions well she was on normal saline and getting rehydrated. This seems to be back in good stead now and we are not planning supplementation. If patient is on a hydrochlorothiazide antihypertensive she may need potassium supplementation. Will leave this up to her PCPs decision making. (5) Obesity (BMI 30-39.9): Code(s): E66.9 - Obesity, unspecified Status: Acute Assessment and Plan: Encouraged patient to go back to her post gastric sleeve bypass diet and try to drop 20-30 lb even though she feels like she is at a good weight. I believe this will help her in the long run as she still registers as obese. She is on the borderline of being able to be off her antihypertensive medicines. 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 (6) Continuous tobacco abuse: Code(s): Z72.0 - Tobacco use Status: Acute Assessment and Plan: Encouraged patient to stop smoking. Hospitalist talk further about this also. Two different patient information manuals regarding smoking were sent home with the patient this discharge. (7) Hypertension: Code(s): I10 - Essential (primary) hypertension Status: Acute DS: Summary Hospital Course Hospital Course: patient unremarkable hospital course. NG tube was placed in the ED. She had a good amount out the 1st day but 24 hours after admission a follow-up abdominal film showed minimal air-fluid levels in the small bowel with most week gas in the colon. She was given 1 dose of milk of magnesia through the NG tube. Clamping rout
== END 2021-09-26 16:24 | disposition home or self-care (01) | DRG 390 ==
LOC: ANHED 09-24 00:17 → ANH3MEDSUR 09-24 02:35
PROVIDERS: Internal Medicine; Physician Assistant; Admitting Provider Surgery; Emergency Provider Emergency Medicine; PCP Family Medicine; Visit Provider Surgery
DX: K56.50 Intestinal adhesions [bands], unspecified as to partial versus complete obstruction (principal); I10 Essential (primary) hypertension; E86.0 Dehydration; E87.6 Hypokalemia; E05.90 Thyrotoxicosis, unspecified without thyrotoxic crisis or storm; E16.2 Hypoglycemia, unspecified; E55.9 Vitamin D deficiency, unspecified; E66.9 Obesity, unspecified; K21.9 Gastro-esophageal reflux disease without esophagitis; F17.210 Nicotine dependence, cigarettes, uncomplicated; F32.A Depression, unspecified; F41.9 Anxiety disorder, unspecified; Z20.822 Contact with and (suspected) exposure to COVID-19; Z68.37 Body mass index [BMI] 37.0-37.9, adult; Z98.84 Bariatric surgery status; Z90.49 Acquired absence of other specified parts of digestive tract
CPT/HCPCS: 36415; 74019; 74177; 80048; 80053; 81001; 81025; 82948; 83605; 83690; 83735; 84132; 84439; 84443; 85025; 85027; 96361; 96374; 96375; 96376; 99285; A9270; C9113; C9803; J1650; J2270; J2405; J3475; J3480; J7030; J7040; Q9967; U0003; U0005

== ENCOUNTER 2024-01-12 11:41 | Emergency (ER) | payer BC, SELFPAY ==
[2024-01-12] VITALS (8 sets, daily range): BP systolic 145–154; BP diastolic 82–98; PULSE 64–87; RESP 17–20; TEMP 36.4–37.2; O2SAT 97–100
--- NOTE | ~2024-01-12 | CT_ITS ---
EXAMINATION: CT abdomen pelvis w con DATE: 01/12/2024 17:02 INDICATION: Abdominal pain. Flank pain. TECHNIQUE: Computed tomography (CT) of the abdomen and pelvis was performed with 100 mL Omnipaque 350 intravenous contrast. Automated exposure control and iterative reconstruction technique were employe d. The dose-length product was 1582.31 mGy-cm. COMPARISON: CT abdomen and pelvis 09/23/2021 FINDINGS: The visualized portions of the lung bases demonstrate minimal atelectasis. No pleural effus ion. The heart size is normal. No pericardial effusion. There are changes of gastric sleeve procedure . There is a small sliding hiatal hernia. The liver and spleen are normal. 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 The pancreas, adrenal glands, and right kidney are normal. There is a striated nephrogram of left kidney with urothelial thickening in the left renal pelvis, consistent with pyelonephritis. There are inserts in the fallopian tubes. There are no dilated loops of bowel. The appendix is normal . There are no pathologically enlarged lymph nodes. There is no free intraperitoneal fluid. There is mild lumbar spondylosis. There is 8 degrees dextrocurvature of thoracolumbar spine. IMPRESSION: 1. Left-sided pyelonephritis. Reviewed, dictated and finalized at location A. IRATORY THERAPY DIRECTOR
--- NOTE | 2024-01-12 15:14 | ECG_ITS ---
Test Date: 2024-01-12 16:48:58 Measurements Intervals Hines Rate: 73 P: 42 UT: 195 QRS: 19 QRSD: 92 T: 30 QT: 381 QTc: 422 Interpretive Statements SINUS RHYTHM DELAYED PRECORDIAL R/S TRANSITION VOLTAGE CRITERIA FOR LVH BASELINE ARTIFACT- I, II, AVR, AVL BORDERLINE ECG No previous ECG available for comparison Electronically Signed On 01-12-2024 18:35:11 [employer] by Spencer Fleming D.O.
[2024-01-12 15:55] LABS: Basophils Percent Auto 0.1 % (0.2-1.2); Eosinophils Percent Auto 0.4 % (0-4.4); Hematocrit 40.8 % (37.0-47.0); Hemoglobin 13.7 g/dL (12.0-15.0); Immature Granulocyte Absolute 0.03 K/mm3 (0.00-0.031); Immature Granulocyte Percent A 0.3 % (0-0.5); Lymphocytes Absolute Auto 2.54 K/mm3 (0.9-3.2); Lymphocytes Percent Auto 26.8 % (18.3-44.2); Mean Corpuscular HGB Conc 33.6 g/dl (32-36); Mean Corpuscular Hemoglobin 29.2 pg (26-34); Mean Platelet Volume 9.5 fl (7.4-10.4); Monocytes Percent Auto 10.1 % (2.6-8.5); Neutrophils Absolute Auto 5.9 K/mm3 (1.3-6.7); Neutrophils Percent Auto 62.3 % (45.5-73.1); Platelet Count Result 303 k/mm3 (150-375); Red Blood Count 4.69 M/mm3 (4.2-5.4); White Blood Count 9.5 K/mm3 (4.5-10.0)
[2024-01-12 15:58] LABS: BEDSIDEPREGUCG Negative (Negative)
[2024-01-12 16:04] LABS: Add Urine Microscopic? YES; Appearance Urine Clear (Clear); Bacteria Urine None Seen /hpf; Bilirubin Urine Negative (Negative); Blood Urine 2+ (Negative); Color Urine Yellow (Yellow); Glucose Urine UA Negative (Negative); Ketones Urine Trace mg/dL (Negative); Leukocyte Esterase Ur Trace LEU/UL (Negative); Nitrate Urine Negative (Negative); Non Pathogenic Casts 0-2; Protein Urine 1+ mg/dL (Negative); RBC Urine 21-50 /hpf (0-2); Specific Grav Ur 1.019 (1.001-1.035); Squamous Epithelial Cell Urine None Seen /hpf (Few); WBC Urine 0-5 /hpf (0-3); pH Urine 5.5 (5.0-9.0)
[2024-01-12 16:09] LABS: Alanine Aminotransferase 33 U/L (6-35); Albumin Level 4.2 g/dL (3.5-5.1); Alkaline Phosphatase 125 U/L (38-126); Anion Gap 5 mmol/L (4-12); Aspartate Amino Transferase 52 U/L (14-36); Bilirubin,Total 0.8 mg/dL (0.2-1.3); Blood Urea Nitrogen 12 mg/dL (7-17); Calcium 8.8 mg/dL (8.4-10.2); Carbon Dioxide 36 mmol/L (22-30); Chloride 94 mmol/L (98-107); Estimated CRCL calculation 142 ml/min; Estimated Glomerular Filt Rate > 60; Glucose 95 mg/dL (65-110); Lipase 78 U/L (23-300); Potassium 2.7 mmol/L (3.4-5.0); Sodium 135 mmol/L (137-145)
[2024-01-12 16:17] LABS: Troponin I < 0.012 ng/mL (0.000-0.034)
[2024-01-12 16:20] LABS: CRP 21.3 mg/dL (<1.0)
[2024-01-12] MEDS: ONDANSETRON HCL ODT 4 MG TABLET PO (16:43)
[2024-01-12] MEDS: ACETAMINOPHEN 500 MG TABLET 1000 MG PO (16:43)
[2024-01-12 17:15] LABS: Influenza A QL RT-PCR Negative (Negative); Influenza B QL RT-PCR Negative (Negative); RSV RNA, RT-PCR Negative (Negative); SARS-CoV-2 RNA PCR Negative (Negative)
--- NOTE | 2024-01-12 17:45 | ED_ITS ---
HPI - Female Genitourinary General Chief complaint: Urogenital-Female Stated complaint: UTI fever on abx Time Seen by Provider: 01/12/24 17:01 Source: patient Mode of arrival: ambulatory Limitations: no limitations History of Present Illness HPI Narrative: This is a 48-year-old female who presents to the ED for chief complaint of fevers and UTI symptoms x1 week. Reports that she started to have left flank pain that is radiating to the left abdomen. Reports that she was told she had an ear infection recently and just got prescribed an antibiotic but is unsure what it is. States she took Tylenol earlier this morning. Denies chest pain, shortness of breath, cough. Related Data Home Medications Medication Instructions Recorded Confirmed omeprazole 20 mg capsule,delayed 20 mg PO HS 02/18/21 01/10/24 release ergocalciferol (vitamin D2) 1,250 1,250 mcg PO WEEKLY 09/24/21 01/10/24 mcg (50,000 unit) capsule multivit with minerals-iron 18 1 tablet PO HS 09/24/21 01/10/24 mg-folic ac 400 mcg-vit K 25 mcg tablet (Adults Multivitamin) biotin 10,000 mcg capsule mcg PO 01/10/24 01/10/24 lactobacillus combination no.4 3 3,000 mmu cells PO DAILY 01/10/24 01/10/24 billion cell capsule (Probiotic) Allergies Allergy/AdvReac Type Severity Reaction Status Date / Time amoxicillin [From Amoxil] Allergy Dyspnea / Verified 01/10/24 14:46 SOB aspirin Allergy Rash Verified 01/10/24 14:46 blueberry Allergy Swelling Verified 01/10/24 14:46 codeine Allergy Dyspnea / Verified 01/10/24 14:46 SOB Review of Systems Review of Systems: All systems as dictated in HPI [facility] Past Medical History Medical History (Updated 01/13/24 @ 00:01 by Cesar Hernandez) Anxiety and depression Continuous tobacco abuse GERD (gastroesophageal reflux disease) Hypertension Not on antihypertensives since December 2020 Obesity Preop BMI 57.3. Current BMI down 37.3 Vitamin D deficiency Surgical History Surgical History (Updated 09/24/21 @ 15:39 by Olinda Amor PA-C) History of knee surgery History of laparoscopic cholecystectomy (~2019) History of lymph node biopsy benign pathology History of sleeve gastrectomy (~2017) At [facility] History of tubal ligation Family History Family History Mother Hypertension Cerebrovascular accident Diabetes mellitus Father , in a house fire Cerebrovascular accident Myocardial infarction In his 50s Sibling Hypertension Social History Social History (Updated 01/10/24 @ 14:49 by Ashley Velasquez CMA) Smoking packs per day: 1 Smoking cigarettes per day: 20.0 Years smoked: 15 Smoking pack-years: 15.00 Smoking status: Current every day smoker Tobacco type: cigarettes Additional smoking assessment comments: She started smoking at age 30. Alcohol intake: current Drinks per week: 3 Substance use: never Do You Feel Safe in your Home?: Yes Lack of Transportation: No Lack of Food: Never True Current Housing: I Have Housing Concerned About Future Housing: No Difficulty Paying Gas/Electric Bills: No Difficulty Paying for Meds: No Currently Unemployed: No Education: Master's Degree or Higher Difficulty w/ Childcare or Family Care: No Additional living arrangements comments: She lives at home with her 3 sons. Ages 23, 18 in 10. She is . 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 Gender identity (if verbalized by the patient): Female Spiritual care concerns: No Exam Narrative: GENERAL: Well-appearing, well-nourished, and in no acute distress. HEAD: Normocephalic, atraumatic. EYES: PERRLA and EOMI. ENT: Nares clear, no rhinorrhea or epistaxis. Mucous membranes moist. Oropharynx without tonsillar hypertrophy exudate or other lesions. NECK: Supple. No adenopathy or masses. CHEST: No respiratory distress. Clear to auscultation. No wheezes rales or rhonchi HEART: Regular rate and rhythm. No murmur heard. Normal peripheral pulses. ABDOMEN: Left flank tenderness present. Negative right flank tenderness. Soft, otherwise nontender, nondistended, normal active bowel sounds. MSK: Normal range of motion. No edema. SKIN: Warm, dry, no rash. NEURO: Alert and oriented x4. No focal deficits. PSYCH: Normal mood and affect. Course Vital Signs Vital signs: Vital Signs Temperature 97.6 F 01/12/24 11:42 Pulse Rate 87 01/12/24 11:42 Respiratory Rate 18 01/12/24 11:42 Blood Pressure 154/98 H 01/12/24 11:42 Pulse Oximetry 98 01/12/24 11:42 Oxygen Delivery Room Air 01/12/24 11:42 Temperature 98.7 F 01/12/24 20:55 Pulse Rate 64 01/12/24 20:55 Respiratory Rate 17 01/12/24 20:55 Blood Pressure 145/82 H 01/12/24 20:55 Pulse Oximetry 100 01/12/24 20:55 Oxygen Delivery Room Air 01/12/24 11:42 MDM - Female Genitourinary MDM Narrative Medical decision making narrative: This is a 48-year-old female who presents to the ED for chief complaint of left flank pain and UTI symptoms. Vitals are normal. Exam shows left flank tenderness present. She does not appear toxic Lab work shows normal white count on the CBC. CMP remarkable for hypokalemia of 2.7. CMP otherwise unremarkable. CRP elevated 21.3. Urinalysis remarkable for evidence of UTI. CT abdomen pelvis with IV contrast shows left-sided pyelonephritis which is consistent with patient presentation. She is tolerating p.o. she was given potassium repletion and started on ciprofloxacin here. Rx for Cipro given as well. Urine culture is pending. Patient will be discharged in stable condition. Supportive measures discussed and return precautions given. Patient is understanding and agreeable with plan for discharge with PCP follow-up. Lab Data 01/12/24 15:43 01/12/24 15:43 Labs: Lab Results 01/12/24 01/12/24 01/12/24 Range/Units 15:43 15:43 15:43 WBC 9.5 (4.5-10.0) K/mm3 RBC 4.69 (4.2-5.4) M/mm3 Hgb 13.7 (12.0-15.0) g/dL Hct 40.8 (37.0-47.0) % MCV 87.0 (80-100) fl MCH 29.2 (26-34) pg MCHC 33.6 (32-36) g/dl RDW 13.0 (11.5-14.5) % Plt Count 303 (150-375) k/mm3 MPV 9.5 (7.4-10.4) fl Immature Gran % (Auto) 0.3 (0-0.5) % Neut % (Auto) 62.3 (45.5-73.1) % Lymph % (Auto) 26.8 (18.3-44.2) % [place] % (Auto) 10.1 H (2.6-8.5) % Eos % (Auto) 0.4 (0-4.4) % Baso % (Auto) 0.1 L (0.2-1.2) % Lymph # (Auto) 2.54 (0.9-3.2) K/mm3 [place] # (Auto) 1.0 H (0.1-0.6) K/mm3 Eos # (Auto) 0.0 (0-0.3) K/mm3 Baso # (Auto) 0.0 (0.0-0.1) K/mm3 Abs Immat Gran (auto) 0.03 (0.00-0.031) K/mm3 Absolute Neuts (auto) 5.9 (1.3-6.7) K/mm3 Absolute Nucleated RBC 0.000 (0.0-0.012) K/mm3 Nucleated RBC % 0.0 (0.0-0.2) % PT 14.0 (11.1-14.7) Seconds INR 1.0 APTT 25.0 (22.3-36.8) Seconds Sodium Cancelled 135 L Potassium Cancelled 2.7 L* Chloride Cancelled Carbon Dioxide Anion Gap BUN Creatinine Estim Creat Clear Calc Estimated GFR Glucose Lactic Acid (0.7-2.0) mmol/L Calcium Total Bilirubin AST ALT Alkaline Phosphatase Troponin I (0.000-0.034) ng/mL C-Reactive Protein (<1.0) mg/dL Total Protein Albumin Lipase (23-300) U/L Urine Color (Yellow) Urine Appearance (Clear) Urine pH (5.0-9.0) Ur Specific [place] (1.001-1.035) Urine Protein (Negative) mg/dL Urine Glucose (UA) (Negative) mg/dL Urine Ketones (Negative) mg/dL Ur Blood (Man) (Negative) Urine Nitrate (Negative) Urine Bilirubin (Negative) Urine Urobilinogen (<2.0) mg/dL Leukocyte Esterase Rfl (Negative) JOHN/UL Urine RBC (0-2) /hpf Urine WBC (0-3) /hpf Ur Squamous Epith Cells (Few) /hpf Urine Bacteria /hpf Urine Casts POC Urine HCG, Qual (Negative) Influenza A (RT-PCR) (Negative) Influenza B (RT-PCR) (Negative) RSV (RT-PCR) (Negative) SARS-CoV-2 RNA (RT-PCR) (Negative) 01/12/24 01/12/24 01/12/24 Range/Units 15:43 15:43 15:43 WBC (4.5-10.0) K/mm3 RBC (4.2-5.4) M/mm3 Hgb (12.0-15.0) g/dL Hct (37.0-47.0) % MCV (80-100) fl MCH (26-34) pg MCHC (32-36) g/dl RDW (11.5-14.5) % Plt Count (150-375) k/mm3 MPV (7.4-10.4) fl Immature Gran % (Auto) (0-0.5) % Neut % (Auto) (45.5-73.1) % Lymph % (Auto) (18.3-44.2) % [place] % (Auto) (2.6-8.5) % Eos % (Auto) (0-4.4) % Baso % (Auto) (0.2-1.2) % Lymph # (Auto) (0.9-3.2) K/mm3 [place] # (Auto) (0.1-0.6) K/mm3 Eos # (Auto) (0-0.3) K/mm3 Baso # (Auto) (0.0-0.1) K/mm3 Abs Immat Gran (auto) (0.00-0.031) K/mm3 Absolute Neuts (auto) (1.3-6.7) K/mm3 Absolute Nucleated RBC (0.0-0.012) K/mm3 Nucleated RBC % (0.0-0.2) % PT (11.1-14.7) Seconds INR APTT (22.3-36.8) Seconds Sodium Potassium Chloride 94 L Carbon Dioxide Cancelled 36 H Anion Gap Cancelled 5 BUN Cancelled Creatinine Estim Creat Clear Calc Estimated GFR Glucose Lactic Acid (0.7-2.0) mmol/L Calcium Total Bilirubin AST ALT Alkaline Phosphatase Troponin I (0.000-0.034) ng/mL C-Reactive Protein (<1.0) mg/dL Total Protein Albumin Lipase (23-300) U/L Urine Color (Yellow) Urine Appearance (Clear) Urine pH (5.0-9.0) Ur Specific [place] (1.001-1.035) Urine Protein (Negative) mg/dL Urine Glucose (UA) (Negative) mg/dL Urine Ketones (Negative) mg/dL Ur Blood (Man) (Negative) Urine Nitrate (Negative) Urine Bilirubin (Negative) Urine Urobilinogen (<2.0) mg/dL Leukocyte Esterase Rfl (Negative) JOHN/UL Urine RBC (0-2) /hpf Urine WBC (0-3) /hpf Ur Squamous Epith Cells (Few) /hpf Urine Bacteria /hpf Urine Casts POC Urine HCG, Qual (Negative) Influenza A (RT-PCR) (Negative) Influenza B (RT-PCR) (Negative) RSV (RT-PCR) (Negative) SARS-CoV-2 RNA (RT-PCR) (Negative) 01/12/24 01/12/24 01/12/24 Range/Units 15:43 15:43 15:43 WBC (4.5-10.0) K/mm3 RBC (4.2-5.4) M/mm3 Hgb (12.0-15.0) g/dL Hct (37.0-47.0) % MCV (80-100) fl MCH (26-34) pg MCHC (32-36) g/dl RDW (11.5-14.5) % Plt Count (150-375) k/mm3 MPV (7.4-10.4) fl Immature Gran % (Auto) (0-0.5) % Neut % (Auto) (45.5-73.1) % Lymph % (Auto) (18.3-44.2) % [place] % (Auto) (2.6-8.5) % Eos % (Auto) (0-4.4) % Baso % (Auto) (0.2-1.2) % Lymph # (Auto) (0.9-3.2) K/mm3 [place] # (Auto) (0.1-0.6) K/mm3 Eos # (Auto) (0-0.3) K/mm3 Baso # (Auto) (0.0-0.1) K/mm3 Abs Immat Gran (auto) (0.00-0.031) K/mm3 Absolute Neuts (auto) (1.3-6.7) K/mm3 Absolute Nucleated RBC (0.0-0.012) K/mm3 Nucleated RBC % (0.0-0.2) % PT (11.1-14.7) Seconds INR APTT (22.3-36.8) Seconds Sodium Potassium Chloride Carbon Dioxide Anion Gap BUN 12 D Creatinine Cancelled 0.60 L Estim Creat Clear Calc Cancelled 142 Estimated GFR Cancelled Glucose Lactic Acid (0.7-2.0) mmol/L Calcium Total Bilirubin AST ALT Alkaline Phosphatase Troponin I (0.000-0.034) ng/mL C-Reactive Protein (<1.0) mg/dL Total Protein Albumin Lipase (23-300) U/L Urine Color (Yellow) Urine Appearance (Clear) Urine pH (5.0-9.0) Ur Specific [place] (1.001-1.035) Urine Protein (Negative) mg/dL Urine Glucose (UA) (Negative) mg/dL Urine Ketones (Negative) mg/dL Ur Blood (Man) (Negative) Urine Nitrate (Negative) Urine Bilirubin (Negative) Urine Urobilinogen (<2.0) mg/dL Leukocyte Esterase Rfl (Negative) JOHN/UL Urine RBC (0-2) /hpf Urine WBC (0-3) /hpf Ur Squamous Epith Cells (Few) /hpf Urine Bacteria /hpf Urine Casts POC Urine HCG, Qual (Negative) Influenza A (RT-PCR) (Negative) Influenza B (RT-PCR) (Negative) RSV (RT-PCR) (Negative) SARS-CoV-2 RNA (RT-PCR) (Negative) 01/12/24 01/12/24 01/12/24 Range/Units 15:43 15:43 15:43 WBC (4.5-10.0) K/mm3 RBC (4.2-5.4) M/mm3 Hgb (12.0-15.0) g/dL Hct (37.0-47.0) % MCV (80-100) fl MCH (26-34) pg MCHC (32-36) g/dl RDW (11.5-14.5) % Plt Count (150-375) k/mm3 MPV (7.4-10.4) fl Immature Gran % (Auto) (0-0.5) % Neut % (Auto) (45.5-73.1) % Lymph % (Auto) (18.3-44.2) % [place] % (Auto) (2.6-8.5) % Eos % (Auto) (0-4.4) % Baso % (Auto) (0.2-1.2) % Lymph # (Auto) (0.9-3.2) K/mm3 [place] # (Auto) (0.1-0.6) K/mm3 Eos # (Auto) (0-0.3) K/mm3 Baso # (Auto) (0.0-0.1) K/mm3 Abs Immat Gran (auto) (0.00-0.031) K/mm3 Absolute Neuts (auto) (1.3-6.7) K/mm3 Absolute Nucleated RBC (0.0-0.012) K/mm3 Nucleated RBC % (0.0-0.2) % PT (11.1-14.7) Seconds INR APTT (22.3-36.8) Seconds Sodium Potassium Chloride Carbon Dioxide Anion Gap BUN Creatinine Estim Creat Clear Calc Estimated GFR > 60 Glucose Cancelled 95 Lactic Acid 1.0 (0.7-2.0) mmol/L Calcium Cancelled 8.8 Total Bilirubin Cancelled AST ALT Alkaline Phosphatase Troponin I (0.000-0.034) ng/mL C-Reactive Protein (<1.0) mg/dL Total Protein Albumin Lipase (23-300) U/L Urine Color (Yellow) Urine Appearance (Clear) Urine pH (5.0-9.0) Ur Specific [place] (1.001-1.035) Urine Protein (Negative) mg/dL Urine Glucose (UA) (Negative) mg/dL Urine Ketones (Negative) mg/dL Ur Blood (Man) (Negative) Urine Nitrate (Negative) Urine Bilirubin (Negative) Urine Urobilinogen (<2.0) mg/dL Leukocyte Esterase Rfl (Negative) JOHN/UL Urine RBC (0-2) /hpf Urine WBC (0-3) /hpf Ur Squamous Epith Cells (Few) /hpf Urine Bacteria /hpf Urine Casts POC Urine HCG, Qual (Negative) Influenza A (RT-PCR) (Negative) Influenza B (RT-PCR) (Negative) RSV (RT-PCR) (Negative) SARS-CoV-2 RNA (RT-PCR) (Negative) 01/12/24 01/12/24 01/12/24 Range/Units 15:43 15:43 15:43 WBC (4.5-10.0) K/mm3 RBC (4.2-5.4) M/mm3 Hgb (12.0-15.0) g/dL Hct (37.0-47.0) % MCV (80-100) fl MCH (26-34) pg MCHC (32-36) g/dl RDW (11.5-14.5) % Plt Count (150-375) k/mm3 MPV (7.4-10.4) fl Immature Gran % (Auto) (0-0.5) % Neut % (Auto) (45.5-73.1) % Lymph % (Auto) (18.3-44.2) % [place] % (Auto) (2.6-8.5) % Eos % (Auto) (0-4.4) % Baso % (Auto) (0.2-1.2) % Lymph # (Auto) (0.9-3.2) K/mm3 [place] # (Auto) (0.1-0.6) K/mm3 Eos # (Auto) (0-0.3) K/mm3 Baso # (Auto) (0.0-0.1) K/mm3 Abs Immat Gran (auto) (0.00-0.031) K/mm3 Absolute Neuts (auto) (1.3-6.7) K/mm3 Absolute Nucleated RBC (0.0-0.012) K/mm3 Nucleated RBC % (0.0-0.2) % PT (11.1-14.7) Seconds INR APTT (22.3-36.8) Seconds Sodium Potassium Chloride Carbon Dioxide Anion Gap BUN Creatinine Estim Creat Clear Calc Estimated GFR Glucose Lactic Acid (0.7-2.0) mmol/L Calcium Total Bilirubin 0.8 AST Cancelled 52 H ALT Cancelled 33 Alkaline Phosphatase Cancelled Troponin I (0.000-0.034) ng/mL C-Reactive Protein (<1.0) mg/dL Total Protein Albumin Lipase (23-300) U/L Urine Color (Yellow) Urine Appearance (Clear) Urine pH (5.0-9.0) Ur Specific [place] (1.001-1.035) Urine Protein (Negative) mg/dL Urine Glucose (UA) (Negative) mg/dL Urine Ketones (Negative) mg/dL Ur Blood (Man) (Negative) Urine Nitrate (Negative) Urine Bilirubin (Negative) Urine Urobilinogen (<2.0) mg/dL Leukocyte Esterase Rfl (Negative) JOHN/UL Urine RBC (0-2) /hpf Urine WBC (0-3) /hpf Ur Squamous Epith Cells (Few) /hpf Urine Bacteria /hpf Urine Casts POC Urine HCG, Qual (Negative) Influenza A (RT-PCR) (Negative) Influenza B (RT-PCR) (Negative) RSV (RT-PCR) (Negative) SARS-CoV-2 RNA (RT-PCR) (Negative) 01/12/24 01/12/24 01/12/24 Range/Units 15:43 15:43 15:43 WBC (4.5-10.0) K/mm3 RBC (4.2-5.4) M/mm3 Hgb (12.0-15.0) g/dL Hct (37.0-47.0) % MCV (80-100) fl MCH (26-34) pg MCHC (32-36) g/dl RDW (11.5-14.5) % Plt Count (150-375) k/mm3 MPV (7.4-10.4) fl Immature Gran % (Auto) (0-0.5) % Neut % (Auto) (45.5-73.1) % Lymph % (Auto) (18.3-44.2) % [place] % (Auto) (2.6-8.5) % Eos % (Auto) (0-4.4) % Baso % (Auto) (0.2-1.2) % Lymph # (Auto) (0.9-3.2) K/mm3 [place] # (Auto) (0.1-0.6) K/mm3 Eos # (Auto) (0-0.3) K/mm3 Baso # (Auto) (0.0-0.1) K/mm3 Abs Immat Gran (auto) (0.00-0.031) K/mm3 Absolute Neuts (auto) (1.3-6.7) K/mm3 Absolute Nucleated RBC (0.0-0.012) K/mm3 Nucleated RBC % (0.0-0.2) % PT (11.1-14.7) Seconds INR APTT (22.3-36.8) Seconds Sodium Potassium Chloride Carbon Dioxide Anion Gap BUN Creatinine Estim Creat Clear Calc Estimated GFR Glucose Lactic Acid (0.7-2.0) mmol/L Calcium Total Bilirubin AST ALT Alkaline Phosphatase 125 Troponin I < 0.012 (0.000-0.034) ng/mL C-Reactive Protein 21.3 H (<1.0) mg/dL Total Protein Cancelled 9.0 H Albumin Cancelled 4.2 Lipase 78 (23-300) U/L Urine Color Yellow (Yellow) Urine Appearance Clear (Clear) Urine pH 5.5 (5.0-9.0) Ur Specific [place] 1.019 (1.001-1.035) Urine Protein 1+ H (Negative) mg/dL Urine Glucose (UA) Negative (Negative) mg/dL Urine Ketones Trace H (Negative) mg/dL Ur Blood (Man) 2+ H (Negative) Urine Nitrate Negative (Negative) Urine Bilirubin Negative (Negative) Urine Urobilinogen 1.0 (<2.0) mg/dL Leukocyte Esterase Rfl Trace H (Negative) JOHN/UL Urine RBC 21-50 H (0-2) /hpf Urine WBC 0-5 (0-3) /hpf Ur Squamous Epith Cells None seen (Few) /hpf Urine Bacteria None seen /hpf Urine Casts 0-2 POC Urine HCG, Qual (Negative) Influenza A (RT-PCR) (Negative) Influenza B (RT-PCR) (Negative) RSV (RT-PCR) (Negative) SARS-CoV-2 RNA (RT-PCR) (Negative) 01/12/24 01/12/24 Range/Units 15:45 16:34 WBC (4.5-10.0) K/mm3 RBC (4.2-5.4) M/mm3 Hgb (12.0-15.0) g/dL Hct (37.0-47.0) % MCV (80-100) fl MCH (26-34) pg MCHC (32-36) g/dl RDW (11.5-14.5) % Plt Count (150-375) k/mm3 MPV (7.4-10.4) fl Immature Gran % (Auto) (0-0.5) % Neut % (Auto) (45.5-73.1) % Lymph % (Auto) (18.3-44.2) % [place] % (Auto) (2.6-8.5) % Eos % (Auto) (0-4.4) % Baso % (Auto) (0.2-1.2) % Lymph # (Auto) (0.9-3.2) K/mm3 [place] # (Auto) (0.1-0.6) K/mm3 Eos # (Auto) (0-0.3) K/mm3 Baso # (Auto) (0.0-0.1) K/mm3 Abs Immat Gran (auto) (0.00-0.031) K/mm3 Absolute Neuts (auto) (1.3-6.7) K/mm3 Absolute Nucleated RBC (0.0-0.012) K/mm3 Nucleated RBC % (0.0-0.2) % PT (11.1-14.7) Seconds INR APTT (22.3-36.8) Seconds Sodium Potassium Chloride Carbon Dioxide Anion Gap BUN Creatinine Estim Creat Clear Calc Estimated GFR Glucose Lactic Acid (0.7-2.0) mmol/L Calcium Total Bilirubin AST ALT Alkaline Phosphatase Troponin I (0.000-0.034) ng/mL C-Reactive Protein (<1.0) mg/dL Total Protein Albumin Lipase (23-300) U/L Urine Color (Yellow) Urine Appearance (Clear) Urine pH (5.0-9.0) Ur Specific [place] (1.001-1.035) Urine Protein (Negative) mg/dL Urine Glucose (UA) (Negative) mg/dL Urine Ketones (Negative) mg/dL Ur Blood (Man) (Negative) Urine Nitrate (Negative) Urine Bilirubin (Negative) Urine Urobilinogen (<2.0) mg/dL Leukocyte Esterase Rfl (Negative) JOHN/UL Urine RBC (0-2) /hpf Urine WBC (0-3) /hpf Ur Squamous Epith Cells (Few) /hpf Urine Bacteria /hpf Urine Casts POC Urine HCG, Qual Negative (Negative) Influenza A (RT-PCR) Negative (Negative) Influenza B (RT-PCR) Negative (Negative) RSV (RT-PCR) Negative (Negative) SARS-CoV-2 RNA (RT-PCR) Negative (Negative) Discharge Plan Discharge Clinical Impression: Pyelonephritis Patient Disposition: Home, Self-Care Condition: Stable Instructions: Antibiotic Form, Kidney Infection (ED) Additional Instructions: Your exam today shows kidney infection on the left side. Please take antibiotics as prescribed and follow-up with PCP closely on this issue. Use Zofran for nausea and Tylenol/ibuprofen for regular pain control. If you have any new or worsening symptoms please return to the ER for further evaluation. Prescriptions: New ondansetron 4 mg tablet,disintegrating 4 mg PO Q8H PRN (Reason: nausea and vomiting) Qty: 10 0RF ciprofloxacin HCl [Cipro] 500 mg tablet 500 mg PO Q12H Qty: 20 0RF No Action omeprazole 20 mg capsule,delayed release(DR/EC) 20 mg PO HS Probiotic 3 billion cell capsule 3,000 mmu cells PO DAILY Rx Instructions: administer with a meal biotin 10,000 mcg capsule PO vitamin J61-[id number] acid 1,000-400 mcg lozenge 1 lisa sublingual DAILY Qty: 30 5RF escitalopram oxalate 20 mg tablet 20 mg PO HS Qty: 90 1RF hydrochlorothiazide 25 mg tablet 25 mg PO DAILY Qty: 90 1RF valacyclovir 500 mg tablet 500 mg PO HS Qty: 90 1RF ciprofloxacin HCl [Cipro] 500 mg tablet 500 mg PO Q12H Qty: 14 0RF Adults Multivitamin 18 mg iron-400 mcg-25 mcg Tablet 1 tablet PO HS ergocalciferol (vitamin D2) 1,250 mcg (50,000 unit) capsule 1,250 mcg PO WEEKLY Rx Instructions: wednesday Follow-up/Referrals: Silvia Danielle APRN [Primary Care Provider] - Time of Disposition: 19:46
--- NOTE | 2024-01-12 19:43 | PC.NURSE ---
Addendum entered by Birdie Rodriguez RN 01/12/24 20:31: this note enter by Viola WHITTAKER. 2nd set of cultures taken by Viola WHITTAKER Original Note: First set of blood cultures sent down by REMEDIOS Bryant before patient entered room 10. Second set obtained and sent by this RN to lab. When this RN called lab about blood culture set that said received but was still on mobi lab, lab was unsure where second set of blood cultures went - saying it was not sent. After 2 hours, blood cultures were no longer on mobi lab but still not on microbiology in pt chart. Upon shift lab technician arrival, This RN told REMEDIOS Almanza who called lab again stating d/t just coming on shift a new set of blood cultures was needed.
[2024-01-12] MEDS: POTASSIUM CHLORIDE 20 MEQ ER TABLET 40 MEQ PO (19:54)
[2024-01-12] MEDS: CIPROFLOXACIN 500 MG TAB PO (20:44)
== END 2024-01-12 20:57 | disposition home or self-care (01) ==
PROVIDERS: Registered Nurse; Emergency Provider Physician Assistant; PCP Nurse Practitioner Family
DX: N12 Tubulo-interstitial nephritis, not specified as acute or chronic (principal); Z20.822 Contact with and (suspected) exposure to COVID-19; F17.210 Nicotine dependence, cigarettes, uncomplicated; F41.9 Anxiety disorder, unspecified; F32.A Depression, unspecified; K21.9 Gastro-esophageal reflux disease without esophagitis; I10 Essential (primary) hypertension; E66.9 Obesity, unspecified; Z68.38 Body mass index [BMI] 38.0-38.9, adult
CPT/HCPCS: 36415; 74177; 80053; 81001; 81025; 83605; 83690; 84484; 85025; 85610; 85730; 86140; 87040; 87637; 93005; 99284; A9270; Q9967

== ENCOUNTER 2024-07-20 03:05 | Day surgery (SDC) | payer BC, SELFPAY ==
[2024-07-07 13:54] VITALS: BMI 28.8
--- OUTSIDE RECORDS SUMMARY | 2024-07-20 03:08 | XMS_ITS | Clinical Summary ---
Author Organization [facility] Address [address] [place] [phone] Phone Care Team Providers Care Client Representative Name Role Phone Leonidas Foley MD Primary Care Provider [phone] Allergies Active Allergy Reactions Criticality Noted Date Comments Amoxicillin Shortness of Breath/Wheezing High 2011 Aspirin Rash Low 10/29/2011 Codeine Shortness of Breath/Wheezing High 012 Medications vit-iron fumarate-FA ( S) 27-0.8 mg Oral Tab Take 1 Tab by mouth daily. Active oxyCODONE-aceta minophen (PERCOCET) 5-325 mg Oral tablet Take 1 Tab by mouth every 4 hours as needed for Pain, Moderate (For Pain Scale 4-6). 30 Tab 0 10/31/2011 Active ibuprofen (MOTRIN) 600 mg Oral tablet Take 1 Tab by mouth every 6 hours as needed for Pain. 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 Gender Identity Not on file Sexual Orientation Not on file Last Filed Vital Signs Vital Sign Reading Time Taken Comments Blood Pressure 141/77 08/15/2020 8:33 PM CDT Pulse 61 08/15/2020 8:33 PM CDT Temperature 36.8 C (98.3 F) 08/15/2020 8:33 PM CDT Respiratory Rate 18 08/15/2020 8:33 PM CDT Oxygen Saturation 100% 08/15/2020 8:33 PM CDT Inhaled Oxygen Concentration - - Weight 130.7 kg (288 lb 2.3 oz) 08/15/2020 8:06 PM CDT Height 177.8 cm (5' 10) 08/15/2020 6:38 PM CDT Body Mass Index 41.34 08/15/2020 6:38 PM CDT Plan of Treatment Health Maintenance Due Date Last Done Comments HEPATITIS B VACCINES (1 of 3 - 19+ 3-dose series) 08/23 HPV/Cotest (21-29) 09/17/1996 CERVICAL CANCER SCREENING 09/17/2005 HPV/Cotest (30-65) 09/17/2005 PAP SMEAR 09/17/2005 BREAST CANCER SCREENING 2015 COLORECTAL SCREENING 09/17/2020 Colorectal Cancer Screening 09/17/2020 FIT-DNA Q 3 years 09/17/2020 FIT/FOBT Q 1 year 09/17/2020 Flex Sig/CT Colonography Q 5 years 09/17/2020 DTAP/TDAP/TD VACCINES (2 - Td or Tdap) 10/30/2021 INFLUENZA VACCINE (#1) 2023 Insurance [id number] BLUE ACCESS/TRUE BLUE PPO Advance Directives For more information, please contact: [phone] * Full Code (Latest Code Status on File) Date Activated Date Inactivated Comments 10/30/2011 4:15 AM 11/01/2011 11:48 AM * Full Code Date Activated Date Inactivated Comments 10/29/2011 8:19 AM 10/30/2011 4:15 AM Care Teams Client Representative Relationship Specialty Start Date End Date Leonidas Foley MD PCP - General Family Practice 08/15/20
--- OUTSIDE RECORDS SUMMARY | 2024-07-20 03:08 | XMS_ITS | Clinical Summary ---
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 Gender Identity Not on file Sexual Orientation Not on file Plan of Treatment Health Maintenance Due Date Last Done Comments Hepatitis C Virus (HCV) Screening 1975 TdaP Immunization 1975 Hepatitis B Immunization (1 of 3 - 19+ 3-dose series) 09/17/1994 Pap Smear 09/17/1996 Cervical Cancer Screening (CCS) 09/17/2005 HPV/Cotest 09/17/2005 Discussion re Starting/Frequency of Mammograms 2015 Colonoscopy 09/17/2020 Colorectal Cancer Screening 09/17/2020 Influenza Immunization (#1) 2023 SARS-COV-2 Immunization ( season) 2023 07/24/2020, 06/26/2020 Respiratory Syncytial Virus (RSV) Immunization (Adult) (1 - 1-dose 75+ series) 09/17/2050 Meningococcal Immunization (ACWY) Aged Out No longer eligible b ased on patient's age to complete this topic Pneumococcal Immunization Combined Aged Out No longer eligible b ased on patient's age to complete this topic Rotavirus Immunization Aged Out No lo nger eligible based on patient's age to complete this topic
--- OUTSIDE RECORDS SUMMARY | 2024-07-20 03:08 | XMS_ITS | Data Portability ---
Author Organization [facility] [employer], Main Office Address [address] [place] [address] Assessment No assessment recorded. Plan of Treatment Reminders Order Date Submit Date Provider Last Modified By Organization Details Last Modified Time Details Appointments None recorded. Lab CT + NG + TV, DNA, urine/swab 2022 023 [email or web address] [facility], [address] [place], [address], 3 15:15:29 lipid panel, serum 2022 023 [facility], [address] [place], [address], 14:48:42 CMP, serum or plasma 2022 023 [facility], [address] [place], [address], 3 14:48:51 pap, IG + reflex HPV (16+18+45) 2022 023 [facility], [address] [place], [address], 3 12:29:56 TSH + free T4, serum 20[email or web address] [place] [address] Outpatient Lab, [address] [place], [address], 17:18:32 Referral None recorded. Procedures colonoscopy screening (PROC) 2022 023 [email or web address] 256 Tyson Priest MD, [address], [place], [address], 09:39:19 Surgeries None recorded. Imaging MAMMO, screening, bilateral 2022 023 [facility], [facility] , [place], [address], 11:12:52 Medication Orders None recorded. Patient TargetsNo targets recorded. Patient InstructionsNo instructions recorded. Reason for Referral None Reported. Results Created Date Observation Date Name Description Value Unit Range Abnormal Flag Note LastModifiedBy Organization Detail LastModifiedTime 10/11/19 22 10/11/2021 COMPR EHENS FAUSTO METAB OLIC PANEL glucose 92 mg/dL 65-99 normal Fasti ng refer ence inter farheen Not Available [address], [address], 10/11/2021 04:07:30 10/11/19 22 10/11/2021 COMPR EHENS FAUSTO METAB OLIC PANEL urea nitrogen (BUN) 8 mg/dL 7-25 normal Not Available [address], [address], 10/11/2021 04:07:30 10/11/19 22 10/11/2021 COMPR EHENS FAUSTO METAB OLIC PANEL creatinine 0.37 mg/dL 0.50-0 .99 low Not Available [address], [address], 10/11/2021 04:07:30 10/11/19 22 10/11/2021 COMPR EHENS FAUSTO METAB OLIC PANEL eGFR 126 mL/mi n/1.7 3m2 > or = 60 normal The eGFR is based on the CKD-E PI 2020 poornima jarrell. To calcu late the new eGFR from a previ ous Creat inine or Cysta tin C resul t, go to https ://bobby colmenares.surinder middleton/pr ofess ional s/ kdoqi /gfr% 5Fcal culat or Not Available [address], [address], 10/11/2021 04:07:30 10/11/19 22 10/11/2021 COMPR EHENS FAUSTO METAB OLIC PANEL BUN/creatini ne ratio 22 (calc ) 6-22 normal Not Available [address], [address], 10/11/2021 04:07:30 10/11/19 22 10/11/2021 COMPR EHENS FAUSTO METAB OLIC PANEL sodium 140 mmol/ L 135-14 6 normal Not Available [address], [address], 10/11/2021 04:07:30 10/11/19 22 10/11/2021 COMPR EHENS FAUSTO METAB OLIC PANEL potassium 3.4 mmol/ L 3.5-5. 3 low Not Available [address], [address], 10/11/2021 04:07:30 10/11/19 22 10/11/2021 COMPR EHENS FAUSTO METAB OLIC PANEL chloride 99 mmol/ L 98-110 normal Not Available [address], [address], 10/11/2021 04:07:30 10/11/19 22 10/11/2021 COMPR EHENS FAUSTO METAB OLIC PANEL carbon dioxide 32 mmol/ L 20-32 normal Not Available [address], [address], 10/11/2021 04:07:30 10/11/19 22 10/11/2021 COMPR EHENS FAUSTO METAB OLIC PANEL calcium 10.2 mg/dL 8.6-10 .2 normal Not Available [address], [address], 10/11/2021 04:07:30 10/11/19 22 10/11/2021 COMPR EHENS FAUSTO METAB OLIC PANEL protein, total 7.0 g/dL 6.1-8. 1 normal Not Available [address], [address], 10/11/2021 04:07:30 10/11/19 22 10/11/2021 COMPR EHENS FAUSTO METAB OLIC PANEL albumin 3.7 g/dL 3.6-5. 1 normal Not Available [address], [address], 10/11/2021 04:07:30 10/11/19 22 10/11/2021 COMPR EHENS FAUSTO METAB OLIC PANEL globulin 3.3 g/dL_ (calc ) 1.9-3. 7 normal Not Available [address], [address], 10/11/2021 04:07:30 10/11/19 22 10/11/2021 COMPR EHENS FAUSTO METAB OLIC PANEL albumin/glob ulin ratio 1.1 (calc ) 1.0-2. 5 normal Not Available [address], [address], 10/11/2021 04:07:30 10/11/19 22 10/11/2021 COMPR EHENS FAUSTO METAB OLIC PANEL bilirubin, total 0.4 mg/dL 0.2-1. 2 normal Not Available [address], [address], 10/11/2021 04:07:30 10/11/19 22 10/11/2021 COMPR EHENS FAUSTO METAB OLIC PANEL alkaline phosphatase 96 U/L 31-125 normal Not Available [address], [address], 10/11/2021 04:07:30 10/11/19 22 10/11/2021 COMPR EHENS FAUSTO METAB OLIC PANEL AST 37 U/L 10-35 high Not Available [facility] [address] [address] [place], [address], 10/11/2021 04:07:30 10/11/19 22 10/11/2021 COMPR EHENS FAUSTO METAB OLIC PANEL ALT 33 U/L 6-29 high Not Available [facility] [address] [address] [place], [address], 10/11/2021 04:07:30 10/11/19 22 10/11/2021 IRON, TOTAL iron, total 92 mcg/d L 40-190 normal Not Available [facility] [address] [address] [place], [address], 10/11/2021 04:07:28 03/10/19 23 03/11/2022 VITAM IN D,25- OH,TO KELSIE,I A vitamin D,25-oh,tota l,ia 81 NG/mL 30-100 normal Vitam in D Statu s 25-OH Vitam in D: Defic iency : <20 ng/mL Insuf ficie ncy: 20 - 29 ng/mL Optim al: > or = 30 ng/mL For 25-OH Vitam in D testi ng on patie nts on D2-arenas pplem entat ion and patie nts for whom quant itati on of D2 and D3 fract ions is requi red, the [facility] e[facility](TM ) 25-OH VIT D, (D2,D 3), LC/MS /MS is recom deya d: order code 11568 (danis ents >2yrs ). See Note 1 Note 1 For addit ional infor brice fry refer to http: //lady hernandes ics.c om/fa q/FAQ 199 (This link is being provi ded for infor gisela sanchez/ jaime napoles purpo ses only. ) Not Available [facility] [address] [address] [place], [address], 03/11/2022 03:39:39 03/10/19 23 03/11/2022 VITAM IN B12/F OLATE , SERUM PANEL vitamin B12 383 pg/mL 200-11 00 normal Pleas e Note: Altho ugh the refer ence range for vitam in B12 is 200-1 100 pg/mL , it has been repor aj that betwe en 5 and 10% of patie nts with value s betwe en 200 and 400 pg/mL may exper ience neuro psych iatri c and hemat ologi c abnor malit ies due to occul t B12 defic iency ; less than 1% of patie nts with value s above 400 pg/mL will have sympt oms. Not Available [facility] [address] [place], [address], 03/11/2022 03:39:38 03/10/1903/11/2022 VITAM IN B12/F OLATE , SERUM PANEL folate, serum 19.5 NG/mL normal Refer ence Range Low: <3.4 Borde rline : 3.4-5 .4 Meena l: >5.4 Not Available [facility] [address] [address] [place], [address], 03/11/2022 03:39:38 03/10/1903/11/2022 URINA LYSIS , COMPL ETE nitrite negati ve negati ve normal Not Available [facility] [address] [address] [place], [address], 03/11/2022 03:39:37 03/10/1903/11/2022 URINA LYSIS , COMPL ETE leukocyte esterase negati ve negati ve normal Not Available [facility] [address] [address] [place], [address], 03/11/2022 03:39:37 03/10/19 23 03/11/2022 URINA LYSIS , COMPL ETE WBC 6-10 /hpf < or = 5 abnormal Not Available [facility] [address] [address] [place], [address], 03/11/2022 03:39:37 03/10/19 23 03/11/2022 URINA LYSIS , COMPL ETE RBC 0-2 /hpf < or = 2 normal Not Available [address], [address], 03/11/2022 03:39:37 03/10/19 23 03/11/2022 URINA LYSIS , COMPL ETE squamous epithelial cells 0-5 /hpf < or = 5 Not Available [address], [address], 03/11/2022 03:39:37 03/10/19 23 03/11/2022 URINA LYSIS , COMPL ETE bacteria none seen /hpf none seen normal Not Available [address], [address], 03/11/2022 03:39:37 03/10/19 23 03/11/2022 URINA LYSIS , COMPL ETE hyaline cast none seen /lpf none seen normal Not Available [address], [address], 03/11/2022 03:39:37 03/10/19 23 03/11/2022 URINA LYSIS , COMPL ETE color yellow yellow normal Not Available [address], [address], 03/11/2022 03:39:37 03/10/19 23 03/11/2022 URINA LYSIS , COMPL ETE appearance cloudy clear abnormal Not Available [address], [address], 03/11/2022 03:39:37 03/10/19 23 03/11/2022 URINA LYSIS , COMPL ETE specific gravity 1.019 1.001- 1.035 normal Not Available [address], [address], 03/11/2022 03:39:37 01/17/03/11/2022 URINA LYSIS , COMPL ETE pH 7.5 5.0-8. 0 normal Not Available [address], [address], 03/11/2022 03:39:37 03/10/19 23 03/11/2022 URINA LYSIS , COMPL ETE glucose negati ve negati ve normal Not Available [address], [address], 03/11/2022 03:39:37 03/10/19 23 03/11/2022 URINA LYSIS , COMPL ETE bilirubin negati ve negati ve normal Not Available [address], [address], 03/11/2022 03:39:37 03/10/19 23 03/11/2022 URINA LYSIS , COMPL ETE ketones negati ve negati ve normal Not Available [address], [address], 03/11/2022 03:39:37 03/10/19 23 03/11/2022 URINA LYSIS , COMPL ETE occult blood negati ve negati ve normal Not Available [address], [address], 03/11/2022 03:39:37 03/10/19 23 03/11/2022 URINA LYSIS , COMPL ETE protein negati ve negati ve normal Not Available [address], [address], 03/11/2022 03:39:37 03/10/19 23 03/11/2022 COMPR EHENS FAUSTO METAB OLIC PANEL glucose 79 mg/dL 65-99 normal Fasti ng refer ence inter farheen Not Available [address] [address] [place], [address], 03/11/2022 03:39:37 01/17/03/11/2022 COMPR EHENS FAUSTO METAB OLIC PANEL urea nitrogen (BUN) 9 mg/dL 7-25 normal Not Available [address], [address], 03/11/2022 03:39:37 03/10/19 23 03/11/2022 COMPR EHENS FAUSTO METAB OLIC PANEL creatinine 0.41 mg/dL 0.50-0 .99 low Not Available [address], [address], 03/11/2022 03:39:37 03/10/19 23 03/11/2022 COMPR EHENS FAUSTO METAB OLIC PANEL eGFR 123 mL/mi n/1.7 3m2 > or = 60 normal The eGFR is based on the CKD-E PI 2020 equat ion. To calcu late the new eGFR from a previ ous Creat inine or Cysta tin C resul t, go to https ://bobby colmenares.surinder middleton/anabell stevenson s/ kdoqi /gfr% 5Fcal culat or Not Available [address], [address], 03/11/2022 03:39:37 03/10/19 23 03/11/2022 COMPR EHENS FAUSTO METAB OLIC PANEL BUN/creatini ne ratio 22 (calc ) 6-22 normal Not Available [address], [address], 03/11/2022 03:39:37 03/10/1903/11/2022 COMPR EHENS FAUSTO METAB OLIC PANEL sodium 140 mmol/ L 135-14 6 normal Not Available [address], [address], 03/11/2022 03:39:37 03/10/19 23 03/11/2022 COMPR EHENS FAUSTO METAB OLIC PANEL potassium 3.7 mmol/ L 3.5-5. 3 normal Not Available [address], [address], 03/11/2022 03:39:37 03/10/19 23 03/11/2022 COMPR EHENS FAUSTO METAB OLIC PANEL chloride 100 mmol/ L 98-110 normal Not Available [address], [address], 03/11/2022 03:39:37 03/10/19 23 03/11/2022 COMPR EHENS FAUSTO METAB OLIC PANEL carbon dioxide 30 mmol/ L 20-32 normal Not Available [address], [address], 03/11/2022 03:39:37 03/10/19 23 03/11/2022 COMPR EHENS FAUSTO METAB OLIC PANEL calcium 9.2 mg/dL 8.6-10 .2 normal Not Available [address], [address], 03/11/2022 03:39:37 03/10/19 23 03/11/2022 COMPR EHENS FAUSTO METAB OLIC PANEL protein, total 6.8 g/dL 6.1-8. 1 normal Not Available [address], [address], 03/11/2022 03:39:37 03/10/19 23 03/11/2022 COMPR EHENS FAUSTO METAB OLIC PANEL albumin 3.5 g/dL 3.6-5. 1 low Not Available [address], [address], 03/11/2022 03:39:37 03/10/19 23 03/11/2022 COMPR EHENS FAUSTO METAB OLIC PANEL globulin 3.3 g/dL_ (calc ) 1.9-3. 7 normal Not Available [facility] [address], [address], 03/11/2022 03:39:37 03/10/19 23 03/11/2022 COMPR EHENS FAUSTO METAB OLIC PANEL albumin/glob ulin ratio 1.1 (calc ) 1.0-2. 5 normal Not Available [address], [address], 03/11/2022 03:39:37 03/10/19 23 03/11/2022 COMPR EHENS FAUSTO METAB OLIC PANEL bilirubin, total 0.3 mg/dL 0.2-1. 2 normal Not Available [address], [address], 03/11/2022 03:39:37 03/10/19 23 03/11/2022 COMPR EHENS FAUSTO METAB OLIC PANEL alkaline phosphatase 109 U/L 31-125 normal Not Available [address], [address], 03/11/2022 03:39:37 03/10/19 23 03/11/2022 COMPR EHENS FAUSTO METAB OLIC PANEL AST 27 U/L 10-35 normal Not Available [address], [address], 03/11/2022 03:39:37 03/10/19 23 03/11/2022 COMPR EHENS FAUSTO METAB OLIC PANEL ALT 20 U/L 6-29 normal Not Available [address], [address], 03/11/2022 03:39:37 03/10/19 23 03/11/2022 LIPID PANEL , STAND NATASHA cholesterol, total 137 mg/dL <200 normal Not Available [address], [address], 03/11/2022 03:39:36 03/10/19 23 03/11/2022 LIPID PANEL , STAND NATASHA HDL cholesterol 53 mg/dL > or = 50 normal Not Available [address], [address], 03/11/2022 03:39:36 03/10/19 23 03/11/2022 LIPID PANEL , STAND NATASHA triglyceride s 80 mg/dL <150 normal Not Available [id number] [place], [address], 03/11/2022 03:39:36 03/10/19 23 03/11/2022 LIPID PANEL , STAND NATASHA LDL-choleste rol 68 mg/dL _(getachew c) normal Refer ence range : <100 Tae able range <100 mg/dL for prima ry preve ntion ; <70 mg/dL for patie nts with CHD or diabe tic patie nts with > or = 2 CHD risk facto rs. LDL-C is now calcu lated using the Ciarra n-Hop kins calcu latio n, which is a valid ated novel metho d provi ding jonathan r accur acy than the Fried meredith equat ion in the estim ation of LDL-C . Ciarra chna SS et al. FOREIGN. 2013; 310(1 9): 2061- 2068 (http ://ed ucati on.Qu estDi Aeryon Labs. com/f aq/FA Q164) Not Available [facility] [address] [place] [address], [address], 03/11/2022 03:39:36 03/10/19 23 03/11/2022 LIPID PANEL , STAND NATASHA chol/HDLC ratio 2.6 (calc ) <5.0 normal Not Available [address] [address] [place], [address], 03/11/2022 03:39:36 03/10/19 23 03/11/2022 LIPID PANEL , STAND NATASHA non HDL cholesterol 84 mg/dL _(getachew c) <130 normal For patie nts with diabe june plus 1 major ASCVD risk facto r, treat ing to a non-H DL-C goal of <100 mg/dL (LDL- C of <70 mg/dL ) is consi dered a thera peuti c optio n. Not Available [facility] [address], [place], [address], 03/11/2022 03:39:36 03/12/19 23 03/12/2022 CT/NG (CHLA MYDIA /NEIS SERIA ) DNA chlamydia trachomatis DNA not detect ed Not Available [facility] (Lab) [address] [place], [address], 03/12/2022 21:22:11 03/12/19 23 03/12/2022 CT/NG (CHLA MYDIA /NEIS SERIA ) DNA neisseria gonorrhea DNA not detect ed Not Available [facility] (Lab) [address] [place], [address], 03/12/2022 21:22:11 03/13/19 23 03/13/2022 CULTU RE URINE urc ===== ===== ===== ===== ===== ===== ===== ===== ===== ===== ===== ===== ===== ===== ===== ===== ===== ===== ===== ===== ===== ===== ===== ===== CULTU RE NO.: [id number] Exam Statu s: Final Exam Type: CULTU RE URINE ===== ===== ===== ===== ===== ===== ===== ===== ===== ===== ===== ===== ===== ===== ===== ===== ===== ===== ===== ===== ===== ===== ===== ===== Cultu re Repor t: Organ ism #01 Esche slick a coli (escc ol) Antib iotic s escco l Achie vable Achie vable (01) Dosag e Serum Level Urine Level mcg/m l mcg/m l Janey candace <=2 S 021A Ampic illin <=2 S 021A Ampic illin /Sulb actam <=2 S 021A Cefaz leslie <=4 S 021A Cefep debbie <=1 S 021A Cefox itin <=4 S 021A Ceftr iaxon e <=1 S 021A Cipro floxa candace <=0.2 5 S 021A ESBL NEG - 021A Genta micin <=1 S 021A Levof loxac in <=0.1 2 S 021A Merop enem <=0.2 5 S 021A Piper acill in./T azaba <=4 S 021A Tobra mycin <=1 S 021A Trmet hopri m.Sul fa <=20 S 021A rt - Test Card Code AST-G N 021A o2 - Final Organ ism ESCHE R 021A af - Antib iotic Fami TRIME T 021A af - Antib iotic Famil y Na ap - Pheno type Name WILD 021A ap - Pheno type Name Nitro furan toin <=16 S 021A Not Available [facility] (Lab) [address] [place], [address], 03/14/2022 08:32:49 11/17/19 23 11/18/2022 PAP THINP REP, REFLE X HPV diagnosis: Commen t . NEGAT FAUSTO FOR INTRA EPITH ELIAL LESIO N OR ODIN ALEXANDRE . Not Available [facility] (Lab) [address] [place], [address], 11/18/2022 11:13:30 11/17/19 23 11/18/2022 PAP THINP REP, REFLE X HPV specimen adequacy: Commen t . Satis facto ry for evalu ation . No endoc ervic al compo nent is id entif ied. Not Available [facility] (Lab) [address] [place], [address], 11/18/2022 11:13:30 11/17/19 23 11/18/2022 PAP THINP REP, REFLE X HPV performed by: Jose Juan Maya (ASCP ) Not Available [facility] (Lab) [address] [place], [address], 11/18/2022 11:13:30 11/17/19 23 11/18/2022 PAP THINP REP, REFLE X HPV . . Not Available [facility] (Lab) [address] [place], [address], 11/18/2022 11:13:30 11/17/19 23 11/18/2022 PAP THINP REP, REFLE X HPV note: Pop t The Pap smear is a scree evelyne test desig esthela to aid in the detec tion of aruna ligna nt and malig nant condi tions of the uteri ne cervi x. It is not a diagn ostic proce dure and shoul d not be used as the sole means of detec ting cervi getachew cance r. Both false -posi tive and false -nega tive repor ts do occur . . Not Available [facility] (Lab) [address] [place], [address], 11/18/2022 11:13:30 11/17/19 23 11/18/2022 PAP THINP REP, REFLE X HPV test methodology: Pop jones This liqui d based ThinP rep(R ) pap test was scree esthela with the use of an image guide d syste m. Not Available [facility] (Lab) [address] [place], [address], 11/18/2022 11:13:30 11/17/19 23 11/18/2022 PAP THINP REP, REFLE X HPV . Pop t The HPV DNA refle x crite sergio were not met with this speci men resul t there fore, no HPV testi ng was perfo rmed. . Perfo rmed at: [facility] [place] [address] [facility] , [place] [address] Lab Direc tor: Brian blount MD, Phone : [phone] Not Available [facility] (Lab) [address] [place] [address], [address], 11/18/2022 11:13:30 11/25/19 23 11/24/2022 LIPID PANEL cholesterol 161 mg/dL 140-19 9 NIH MICHAEL NSUS RECOM MENDA TION FOR ETHEL STERO L: ADULT CHILD LOW RISK: <200 <170 BORDE RLINE : <200- 239 ----- HIGH RISK: >240 >200 Not Available [facility] (Lab) [address] [place] [address], [address], 11/24/2022 14:48:42 11/25/1911/24/2022 LIPID PANEL triglyceride s 79 mg/dL 0-150 NIH MICHAEL NSUS REPOR T RECOM MENDA TION FOR TRIGL YCERI GALA: ADULT CHILD LOW RISK: <150 ----- BODER LINE: 150-1 99 ----- HIGH RISK: >200 ----- Not Available [facility] (Lab) [address] [place] [address], [address], 11/24/2022 14:48:42 11/25/1911/24/2022 LIPID PANEL HDL cholesterol 45 mg/dL 40- Not Available [facility] (Lab) [address] [place] [address], [address], 11/24/2022 14:48:42 11/25/19 23 11/24/2022 LIPID PANEL LDL cholesterol, calculated 100 mg/dL 0-130 NIH MICHAEL NSUS REPOR T RECOM MENDA TIONS FOR LDL: ADULT CHILD LOW RISK <130 <110 (OPTI MAL LDL) <100 ----- BORDE RLINE : 130-1 59 ----- HIGH RISK: >160 >130 A TRIGL YCERI DE RESUL T >400 INVAL IDATE S THE CALCU LATIO N FOR LDL FRACT IONAT ION - THE LDL RESUL T WILL NOT BE REPOR AJ. Not Available [facility] (Lab) [address] [place], [address], 11/24/2022 14:48:42 11/25/1911/24/2022 COMPR EHENS FAUSTO METAB OLIC PANEL sodium 140 mmol/ L 137-14 5 Not Available [facility] (Lab) [address] [place], [address], 11/24/2022 14:48:51 11/25/1911/24/2022 COMPR EHENS FAUSTO METAB OLIC PANEL potassium 3.7 mmol/ L 3.5-5. 1 Not Available [facility] (Lab) [address] [place], [address], 11/24/2022 14:48:51 11/25/1911/24/2022 COMPR EHENS FAUSTO METAB OLIC PANEL chloride 100 mmol/ L 98-107 Not Available [facility] (Lab) [address] [place], [address], 11/24/2022 14:48:51 11/25/1911/24/2022 COMPR EHENS FAUSTO METAB OLIC PANEL carbon dioxide 33 mmol/ L 22-30 high Not Available [facility] (Lab) [address] [place], [address], 11/24/2022 14:48:51 11/25/1911/24/2022 COMPR EHENS FAUSTO METAB OLIC PANEL anion gap 10.7 mmol/ L 14-22 low Not Available [facility] (Lab) [address] [place], [address], 11/24/2022 14:48:51 11/25/1911/24/2022 COMPR EHENS FAUSTO METAB OLIC PANEL glucose 88 mg/dL 70-99 Not Available [facility] (Lab) [address] [place], [address], 11/24/2022 14:48:51 11/25/1911/24/2022 COMPR EHENS FAUSTO METAB OLIC PANEL BUN 13 mg/dL 8-19 Not Available [facility] (Lab) [address] [place], [address], 11/24/2022 14:48:51 11/25/19 23 11/24/2022 COMPR EHENS FAUSTO METAB OLIC PANEL creatinine 0.47 mg/dL 0.66-1 .25 low Not Available [facility] (Lab) [address] [place], [address], 11/24/2022 14:48:51 11/25/1911/24/2022 COMPR EHENS FAUSTO METAB OLIC PANEL GFR >60 Refer ence Range : [place] ge GFR Healt hy Adult : >60 mL/mi n/1.7 3 m2 Chron ic Kidne y Disea se: 15-60 mL/mi n/1.7 3 m2 Kidne y Failu re: <15/m L/min /1.73 m2 www.n iddk. nih.g ov The MDRD study equat ion has not been valid ated in child kelsea <18 years of age; pregn ant women ; the elder ly >85 years of age; or in some racia l or ethni c subgr oups, such as ri nics. Outsi de the valid ated wu eters , estim ated GFR is less accur ate, requi ring clini getachew judgm ent on a case- by-ca se basis . Clini getachew inter preta tion for other races and ages must be made by the clini nahomy. The MDRD study equat ion has not been valid ated for the evalu ation of serum creat inine relat ed to nutri jose r l statu s or medic ation usage . For perso ns <18 years of age, a pedia tric GFR calcu lator is avail able on the [facility] websi te: https :[email or web address] samuels.shakila colmenares.o rg/pr ofess ional s/kdo qi/gf r_cal culat or Not Available [facility] (Lab) [address] [place], [address], 11/24/2022 14:48:51 11/25/1911/24/2022 COMPR EHENS FAUSTO METAB OLIC PANEL alkaline phosphatase 119 U/L 38-126 Not Available [facility] (Lab) [address] [place], [address], 11/24/2022 14:48:51 11/25/1911/24/2022 COMPR EHENS FAUSTO METAB OLIC PANEL alanine aminotransfe rase 23 U/L 0-35 Not Available [facility] (Lab) [address] [place], [address], 11/24/2022 14:48:51 11/25/1911/24/2022 COMPR EHENS FAUSTO METAB OLIC PANEL aspartate aminotransfe rase 31 U/L 15-37 Not Available [facility] (Lab) [address] [place], [address], 11/24/2022 14:48:51 11/25/1911/24/2022 COMPR EHENS FAUSTO METAB OLIC PANEL bilirubin, total 0.50 mg/dL 0.20-1 .30 Not Available [facility] (Lab) [address] [place], [address], 11/24/2022 14:48:51 11/25/1911/24/2022 COMPR EHENS FAUSTO METAB OLIC PANEL calcium 9.5 mg/dL 8.4-10 .2 Not Available [facility] (Lab) [address] [place], [address], 11/24/2022 14:48:51 11/25/1911/24/2022 COMPR EHENS FAUSTO METAB OLIC PANEL total protein 7.3 g/dL 6.3-8. 2 Not Available [facility] (Lab) [address] [place], [address], 11/24/2022 14:48:51 11/25/1911/24/2022 COMPR EHENS FAUSTO METAB OLIC PANEL albumin 3.8 g/dL 3.4-5. 0 Not Available [facility] (Lab) [address] [place], [address], 11/24/2022 14:48:51 11/25/19 23 11/24/2022 COMPR EHENS FAUSTO METAB OLIC PANEL globulin 3.5 g/dL 2.6-4. 2 Not Available [facility] (Lab) [address] [place], [address], 11/24/2022 14:48:51 11/25/1911/24/2022 COMPR EHENS FAUSTO METAB OLIC PANEL A/G ratio 1.1 ratio 1.0-2. 0 Not Available [facility] (Lab) [address] [place], [address], 11/24/2022 14:48:51 11/25/1911/24/2022 T4 FREE free T4 2.86 NG/dL 0.78-2 .19 high Not Available [facility] (Lab) [address] [place], [address], 11/24/2022 15:34:01 11/25/1911/24/2022 TSH thyroid-stim ulating hormone <0.015 uIU/m L 0.465- 4.680 low Not Available [facility] (Lab) [address] [place], [address], 11/24/2022 15:35:12 11/25/19 23 11/25/2022 TEST NOT PERFO RMED test not performed SEE COMMEN T CT/NG and TV DNA not perfo rmed speci men unlab eled urine sent pleas e recol lect. Not Available [facility] (Lab) [address] [place], [address], 11/25/2022 11:48:12 11/09/19 21 11/08/2020 fine needl e aspir ation , ultra sound guide d, thyro id (PROC ) No observ ation record ed. [email or web address].[address] [place] [address] ([facility]) [address] [place] [address], [place], [address], 04/22/2022 09:28:54 11/09/19 21 11/08/2020 imagi ng/di agnos tic resul t No observ ation record ed. MIGRATION.[address] [place] [address], [place], [address], 04/22/2022 09:28:54 09/25/19 22 09/23/2021 imagi ng/di agnos tic resul t No observ ation record ed. MIGRATION.[address] [place] [address], [place], [address], 04/22/2022 09:28:54 09/25/19 22 09/23/2021 CT, abdom en + pelvi s, w/o contr ast No observ ation record ed. MIGRATION.[address] [place] [address], [place], [address], 04/22/2022 09:28:54 09/26/19 22 09/25/2021 XR, abdom en, 1 view No observ ation record ed. MIGRATION.[address] [place] [address], [place], [address], 04/22/2022 09:28:54 09/27/19 22 09/26/2021 XR, abdom en No observ ation record ed. MIGRATION.[address] [place] [address], [place], [address], 04/22/2022 09:28:54 11/25/19 23 MAMMO , scree evelyne, digit al, bilat eral [facility] [address], [place] [address] Patien t Name: ANTONINA BROWN Access ion #: [id number] Sex: F : 1975 7 Dictat ed By: Chas Vargas Attend ing Physic andra: ELKHAT IB, RUNDA Orderi ng Physic andra: ELKHAT IB, RUNDA Exam Date: 2022 08:03 AM Exam Name: MG DIGITA L FRANCESCO BILAT SCREEN Admitt ing Diagno sis(es ): Histor y: Screen ing. Techni que: CC, MLO views of both breast s were obtain ed Compar patt: None. Findin gs: There is a densit y noted in the upper outer quadra nt middle third seen both on the CC and MLO views. There is no adenop athy, or zamzam ectura l distor tion. Densit y: Fatty replac ed Impres yamel: Potent ial mass within the right breast . Spot compre ssion views and ultras ound recomm ended. BI-RAD S zero incomp lete. Needs additi onal imagin g evalua tion and/or Prior mammog isadora for compar patt. Please note, 10-15% of breast malign ancies are not detect ed by mammog angelina. A normal mammog maverick should not preclu de biopsy of a clinic ally suspic ious and/or palpab le abnorm ality. A letter with the result s of this mammog maverick was mailed to the fabricio jones Electr onical ly Signed by: Chas Vargas at 2022 10:09: 38 AM Page 1 [email or web address] [facility] (Imaging) [address] [place], [address], 11/25/2022 17:11:20 11/25/19 23 11/24/2022 MAMMO , massimo stubbs, bilat eral No observ ation record ed. [email or web address] [facility] [address] [place], [address], 11/25/2022 17:11:20 11/27/19 MAMMO , scree evelyne, digit al, bilat eral [facility] [address] [place], [place] [address] Fabricio jones Name: ANTONINA BROWN Access ion #: [id number] Sex: F : 1975 7 Locati on: MO2 Attend ing Physic andra: ELKHAT IB, RUNDA Orderi ng Physic andra: ELKHAT IB, RUNDA Exam Date: 023 8:03 AM Exam Name: DIGITA L FRANCESCO BILAT SCREEN Admitt ing Diagno sis(es ): RADIOL OGY REPORT - FINAL EXAM: MG DIGITA L FRANCESCO BILAT SCREEN HISTOR Y: screen ing mammog maverick 47-yea r-old female with no curren t breast compla ints. COMPAR PATT: None availa ble TECHNI QUE: Bilate ral CC and MLO views of the breast s were perfor med. Digita l Mammog angelina images were obtain ed. CAD (compu ter assist ed detect ion) was utiliz ed. FINDIN GS: There are scatte red areas of fibrog landul ar densit y. No masses , asymme tries, suspic ious calcif icatio ns, or zamzam ectura l distor tion are seen. Page 1 of 2 [facility] Fabricio jones Name: ANTONINA BROWN Access ion #: [id number] Sex: F : 1975 7 Exam Date: 023 8:03 AM Exam Name: MG NASHA L FRANCESCO BILAT SCREEN Admitt ing Diagno sis(es ): IMPRES YAMEL: BIRADS 1: Assess ment comple te. Negati ve. Recomm end annual screen ing mammog angelina. Accord ing to the [employer], yearly mammog isadora are recomm ended starti ng at age 40 and contin uing as long as the woman is in good health . Clinic al Breast Exam should be part of the period ic health exam-a bout every 3 years for women in their 20s and 30s and every year for women 40 and over. Breast self-e xam is an option for women in their 20s. Any breast change noted on the breast self-e xam she would be report ed prompt ly to the fabricio jones's [facility] er. A negati ve mammog angelina report should not discou rage follow -up or biopsy of a clinic ally signif icant findin g and/or abnorm ality. Dense breast tissue may obscur e small neopla sms. This fabricio jones has been entere d into a mammog angelina remind er system with a target date for her next mammog maverick. Create d and electr onical ly signed by: Master blount MD Signed Date: 9:19 AM (CT) Dictat ed by: Master blount MD DD: 9:19 AM (CT) DT: 9:19 AM (CT) Page 2 of [email or web address] [place] [address] (Imaging) [address] [place], [address], 11/30/2022 09:42:42 12/02/19 23 MAMMO , scree evelyne, digit al, bilat eral [facility] [address] [place] [address] Fabricio jones Name: ANTONINA BROWN Access ion #: [id number] Sex: F : 1975 7 Dictat ed By: Ana Saldivar Attend ing Physic andra: JUDY IB, RUNDA Orderi ng Physic andra: ELEPIAT IB, RUNDA Exam Date: 2022 08:03 AM Exam Name: MG DIGITA L FRANCESCO BILAT SCREEN Admitt ing Diagno sis(es ): ADDEND UM #1 Compar isons become availa ble from 021. No mammog raphic eviden ce of malign bill. Return to annual screen ing mammog maverick. BI-RAD S 1: Negati ve Electr onical ly Signed by: Ana Saldivar at 2022 14:45: 32 PM ORIGIN AL REPORT Histor y: Screen ing. Techni que: CC, MLO views of both breast s were obtain ed Compar patt: None. Findin gs: There is a densit y noted in the upper outer quadra nt middle third seen both on the CC and MLO views. There is no adenop athy, or zamzam ectura l distor tion. Densit y: Fatty replac ed Impres yamel: Potent ial mass within the right breast . Spot compre ssion views and ultras ound recomm ended. BI-RAD S zero incomp lete. Needs additi onal imagin g evalua tion and/or Prior mammog isadora for compar patt. Please note, 10-15% of breast malign ancies are not detect ed by mammog angelina. A normal mammog maverick should not preclu de biopsy of a clinic ally suspic ious and/or palpab le abnorm ality. A letter with the result s of this mammog maverick was mailed to the fabricio maria ly Signed by: Ana Saldivar at 2022 14:45: 32 PM Page 1 [email or web address] [facility] (Imaging) [address] [place], [address], 12/02/2022 17:58:31 12/02/19 23 12/01/2022 MAMMO , scree evelyne, bilat eral No observ ation record ed. [email or web address] [facility] [address] [place] [address], [place], [address], 12/01/2022 17:09:42 Result Notes None recorded. Problems Name Problem SNOMED Code Status Onset Date Resolution Date Notes Provider Name and Address Organization Details Recorded Time Abscess 885563484 Active Not Available [facility] 3 12:41:07 Morbid obesity 547958853 Active Not Available [facility] 3 12:41:07 Varicose veins of lower extremity with inflammation Active Not Available [facility] 3 12:41:07 Ingrowing toenail 289484236 Active Not Available [facility] 3 12:41:07 Streptococcal sore throat 88299302 Active Not Available [facility] 3 12:41:07 Anxiety 66810090 Active Not Available [facility] 3 12:41:07 Essential hypertension 48517399 Active Not Available [facility] 3 12:41:07 Irregular periods 59824800 Active Not Available [facility] 3 12:41:07 Urge incontinence of urine 84433594 Active Not Available [facility] 3 12:41:07 Hypothyroidis m 75925971 Active 2022 Not Available [facility] 3 12:41:07 Vaginal discharge 226987100 Active 2022 Not Available [facility] 3 12:41:07 Yellow vaginal discharge 883213985 Active 2022 Not Available [facility] 3 12:41:07 Hyperthyroidi sm 22519937 Active 2022 Not Available [facility] 3 12:41:07 Venereal disease screening Active 2022 Not Available [facility] 3 12:41:07 Genital herpes simplex 45744935 Active 2023 MIL Calderón [address] [place] [address], [place], [address] , [facility] [employer] 4 10:01:48 Problem Notes None recorded. Procedures Surgical History Date Name Laterality Status Provider Name and Address Organization Details Recorded Time 02/22/19 18 laparoscopic sleeve gastrectomy completed Not Available [facility] 04/22/2022 09:23:33 Imaging Results None recorded. Procedure Notes None recorded. Medical Equipment None Reported. Allergies Allergen ID Allergen Name Allergen Category Reaction Reaction Severity Criticality Documentation Date Start Date Code Code System Note Provider Name and Address Organization Details Recorded Time 84263 codeine medicatio n Not available Not available Not available 04/22/2022 2670 RxNorm Not Available [facility] 3 09:28:51 57926 aspirin medicatio n Not available Not available Not available 04/22/2022 1191 RxNorm Not Available [facility] 3 09:28:51 78690 amoxicill in medicatio n Not available Not available Not available 04/22/2022 723 RxNorm Not Available [facility] 3 09:28:51 Medications Name Sig Start Date Stop Date Status Note LastModified by Organization Details LastModified Time Prescriptio n - Renewal active Not Available Not Available Not Available clindamycin HCl 300 mg capsule 03/06 completed Not Available Not Available Not Available azithromyci n 250 mg tablet TAKE 2 TABLETS BY MOUTH TODAY, THEN TAKE 1 TABLET DAILY FOR 4 DAYS 06/14 completed Not Available Not Available Not Available fluconazole 150 mg tablet TAKE 1 TABLET BY MOUTH EVERY DAY DIRECTED active Not Available Not Available No t Available benzonatate 200 mg capsule Take 1 capsule 3 times a day by oral route as needed. active Not Available Not Available No t Available valacyclovi r 1 gram tablet Take 1 tablet 3 times a day by oral route. active Not Available Not Available No t Available hydrocodone 5 mg-acetamin ophen 325 mg tablet 1 TABLET EVERY 6 HOURS NEEDED FOR PAIN active Not Available Not Available No t Available meloxicam 15 mg tablet TAKE 1 TABLET BY MOUTH EVERY DAY 10/15 completed Not Available Not Available Not Available metronidazo le 0.75 % (37.5 mg/5 gram) vaginal gel 03/17 completed Not Available Not Available Not Available lisinopril 20 mg tablet TAKE 1 TABLET BY MOUTH EVERY DAY 06/14 completed Not Available Not Available Not Available ondansetron HCl 4 mg tablet Take 2 tablets 3 times a day by oral route as needed. 03/16 completed Not Available Not Available Not Available famotidine 40 mg tablet Take 1 tablet twice a day by oral route before meals for 90 days. active Not Available Not Available No t Available ceftriaxone 250 mg solution for injection Take 250 mg by injection route. 03/16 completed [facility]# [phone]- [phone]- [phone] Not Available Not Available Not Available metronidazo le 500 mg tablet TAKE 1 TABLET BY MOUTH TWICE A DAY FOR 7 DAYS 10/15 completed Not Available Not Available Not Available chlorthalid one 25 mg tablet Take 1 tablet every day by oral route. active Not Available Not Available No t Available valacyclovi r 500 mg tablet TAKE 1 TABLET BY MOUTH EVERY DAY active Not Available Not Available No t Available sulfamethox azole 800 mg-trimetho prim 160 mg tablet TAKE 1 TABLET BY MOUTH EVERY 12 HOURS FOR 10 DAYS ...REPLAC ES ZPAK DUE TO INTERACTI ON W/ OTHER MEDS 03/17 completed Not Available Not Available Not Available oxycodone-a cetaminophe n 5 mg-325 mg tablet TAKE 1 TABLET BY MOUTH EVERY 4 HOURS NEEDED FOR PAIN 03/06 completed Not Available Not Available Not Available Kenalog 10 mg/mL suspension for injection In office injection administe red by the provider 10/04 completed [facility]: [phone] Not Available Not Available Not Available neomycin-po lymyxin-dex ameth 3.5 mg/mL-10,00 0 unit/mL-0.1 % eye drops Instill 2 drops 4 times a day by ophthalmi c route. active Not Available Not Available No t Available Cipro 500 mg tablet Take 1 tablet every 12 hours by oral route for 5 days. active Not Available Not Available No t Available lisinopril 10 mg tablet 03/16 completed Not Available Not Available Not Available methimazole 5 mg tablet TAKE 1 TABLET BY MOUTH EVERY DAY active Not Available Not Available No t Available omeprazole 20 mg capsule,del ayed release TAKE 1 CAPSULE BY MOUTH EVERY DAY active Not Available Not Available No t Available lisinopril 5 mg tablet TAKE 1 TABLET BY MOUTH EVERY DAY 03/06 completed Not Available Not Available Not Available hydrochloro thiazide 25 mg tablet TAKE 1 TABLET BY MOUTH EVERY DAY active Not Available Not Available No t Available metoprolol succinate ER 25 mg tablet,exte nded release 24 hr 03/17 completed Not Available Not Available Not Available ergocalcife rol (vitamin D2) 1,250 mcg (50,000 unit) capsule TAKE 1 CAPSULE BY MOUTH ONE TIME PER WEEK active Not Available Not Available No t Available Septra DS 800 mg-160 mg tablet Take 1 tablet every 12 hours by oral route for 10 days. 07/31 completed Not Available Not Available Not Available ondansetron 4 mg disintegrat ing tablet 03/17 completed Not Available Not Available Not Available Vitamin B-12 1,000 mcg tablet TAKE 1 TABLET BY MOUTH EVERY DAY 2023 active Not Available Not Available Not Avai lable NuvaRing 0.12 mg-0.015 mg/24 hr vaginal INSERT 1 RING VAG FOR 3 WEEKS AND REMOVE FOR ONE WEEK 03/16 completed Not Available Not Available Not Available escitalopra m 10 mg tablet TAKE 1 TABLET BY MOUTH EVERY DAY active Not Available Not Available No t Available escitalopra m 20 mg tablet TAKE 1 TABLET BY MOUTH EVERY DAY active Not Available Not Available No t Available Klor-Con M20 mEq tablet,exte nded release 03/16 completed Not Available Not Available Not Available nitrofurant oin monohydrate /macrocryst als 100 mg capsule TAKE 1 CAPSULE BY MOUTH EVERY 12 HOURS 03/17 completed Not Available Not Available Not Available lidocaine (PF) 10 mg/mL (1 %) injection solution In office injection administe red by the provider 10/04 completed [facility]: 0409- [phone]- [phone] Not Available Not Available Not Available Nascobal 500 mcg/spray nasal spray [place] 2 sprays every day by intranasa l route. 03/16 completed Not Available Not Available Not Available [employer] COVID-19 Antigen Home Test kit USE DIRECTED 03/12 completed Not Available Not Available Not Available Vitals Date Recorded Body mass index (BMI) Body height Oxygen saturation Oxygen saturation in Arterial blood by Pulse oximetry Heart rate Body temperature Body weight Systolic blood pressure Diastolic blood pressure Provider Name and Address Organization Details Last Updated DateTime 3 34.7 kg/m2 177.8 cm 98 % 98 % 72 /min 97.7 [degF] 737484. 35 g 124 mm[Hg] 80 mm[Hg] Not Available [facility] 3 09:24:48 Date Recorded Body mass index (BMI) Body height Oxygen saturation Oxygen saturation in Arterial blood by Pulse oximetry Heart rate Body temperature Body weight Systolic blood pressure Diastolic blood pressure Provider Name and Address Organization Details Last Updated DateTime 2 36.3 kg/m2 177.8 cm 99 % 99 % 85 /min 97.3 [degF] 401493. 87 g 144 mm[Hg] 100 mm[Hg] Not Available [facility] 3 09:24:48 Date Recorded Body height Body mass index (BMI) Body weight Body temperature Heart rate Oxygen saturation Oxygen saturation in Arterial blood by Pulse oximetry Systolic blood pressure Diastolic blood pressure Provider Name and Address Organization Details Last Updated DateTime 3 177.8 cm 35.3 kg/m2 154748. 72 g 97.3 [degF] 70 /min 97 % 97 % 124 mm[Hg] 72 mm[Hg] Domonique lowry CMA [place] [facility] [employer] 3 11:27:11 Date Recorded Body mass index (BMI) Body height Oxygen saturation Oxygen saturation in Arterial blood by Pulse oximetry Heart rate Body temperature Body weight Systolic blood pressure Diastolic blood pressure Provider Name and Address Organization Details Last Updated DateTime 1 43.2 kg/m2 177.8 cm 99 % 99 % 67 /min 98.8 [degF] 472758. 3 g 128 mm[Hg] 80 mm[Hg] Not Available [facility] 3 09:24:48 Date Recorded Body height Provider Name an d Address Organization Details Last Updated DateTime 11/24/2022 177.8 cm Kelsie bauman MA [place] - [facility] [employer] 11/24/2022 09:00:44 Social History Question Answer Notes LastModified by Organizat ion Details LastModified Time Tobacco Smoking Status Current Every Day Smoker Not Available [facility] 04/22/2022 09:23:22 Do You Have An Advance Directive? No [id number] Information not available 04/22/2022 What Is Your Level Of Caffeine Consumption? Heavy MIGRATION.264805 1835 Information not available 04/22/2022 In The 14 Days Before Symptom Onset, Have You Had Close Contact With A Laboratory-confirm ed COVID-19 While That Case Was Ill? No MIGRATION.[id number] Information not available 04/22/2022 In The 14 Days Before Symptom Onset, Have You Had Close Contact With A Person Who Is Under Investigation For COVID-19 While That Person Was Ill? No MIGRATION.256959 5815 Information not available 04/22/2022 What Type Of Diet Are You Following? REGULAR MIGRATION.239966 8727 Information not available 04/22/2022 What Is The Highest Grade Or Level Of School You Have Completed Or The Highest Degree You Have Received? [id number] MIGRATION.717917 0517 Information not available 04/22/2022 Do You Have A Medical Power Of University Administrative Assistant? No MIGRATION.751817 8214 Information not available 04/22/2022 Have You Ever Been Counseled For Unhealthy Alcohol Use? No MIGRATION.883003 4051 Information not available 04/22/2022 What Is Your Relationship Status? MIGRATION.602768 4745 Information not available 04/22/2022 Do You Use Your Seat Belt Or Car Seat Routinely? Yes MIGRATION.765037 8465 Information not available 04/22/2022 How Much Tobacco Do You Smoke? 1 PPD MIGRATION.933969 6778 Information not available 04/22/2022 How Many Years Have You Smoked Tobacco? 15 MIGRATION.308378 5525 Information not available 04/22/2022 Have You Recently Traveled Abroad? No MIGRATION.871560 1434 Information not available 04/22/2022 Do You Have Any Dietary Restrictions? No MIGRATION.607926 9801 Information not available 04/22/2022 Sex: Female Functional Status Question Answer Note LastModified by Sayah Details LastModified Time Do you use any illicit or recreational drugs? No MIGRATION.[id number] 026 Information not available 04/22/2022 Do you or have you ever used any other forms of tobacco or nicotine? No MIGRATION.5675610 026 Information not available 04/22/2022 What is your level of alcohol consumption? Moderate MIGRATION.4843395 026 Information not available 04/22/2022 What is your exercise level? Occasional MIGRATION.4801330 026 Information not available 04/22/2022 Mental Status Question Answer Note LastModified by Sayah Details LastModified Time Do you feel stressed (tense, restless, nervous, or anxious, or unable to sleep at night)? LH5306-2 MIGRATION.[id number] Information not available 04/22/2022 Family History Relationship Description Onset Age of this Age Resolved Age Notes LastModified by Organization Details LastModified Time Father Diabetes mellitus MIGRATION.446 [id number] Not available 04/22/2022 09:23:33 Father Hypertensive disorder MIGRATION.092 [id number] Not available 04/22/2022 09:23:34 Father Low blood pressure MIGRATION.835 [id number] Not available 04/22/2022 09:23:34 Mother Diabetes mellitus MIGRATION.904 [id number] Not available 04/22/2022 09:23:34 Mother Low blood pressure MIGRATION.889 [id number] Not available 04/22/2022 09:23:34 Medical History Condition Response ARTHRITIS Y SHINGLES Y USE OF BLOOD THINNERS Y GERD/NAUSEA Y HYPERTENSION Y Gynecological HistoryNo gynecological history recorded. Obstetrics History GPAL:G 0 P 0 0 0 0 Immunizations Vaccine Type Date Status Note Provider Nam e and Address Organization Details Recorded Time Influenza, split virus, quadrivalent, PF 03/12/2022 completed Not Available [facility] 12:[facility] Past Encounters Encounter ID Performer Location Encounter Start Date Encounter Closed Date Diagnosis/Indication Diagnosis SNOMED-CT Code Diagnosis ICD10 Code Diagnosis Note [id number] Leonidas Foley MD [facility] [place] [address] 06/14/2020 00:00:00 06/14/2020 10:44:16 [id number] MIL Erickson [facility] [address] [place] [address] 08/22/2020 00:00:00 08/22/2020 10:06:12 [id number] MIL Erickson [facility] [address] [place] [address] 10/03/2020 00:00:00 10/03/2020 10:16:10 [id number] Therese Norwood MD [facility] [address] [place] [address] 10/04/2020 00:00:00 10/04/2020 11:02:54 [id number] Therese Norwood MD [facility] [address] [place] [address] 11/22/2020 00:00:00 11/22/2020 11:35:22 [id number] Leonidas Foley MD [facility] [address] [address] [place] [address] 10/15/2021 00:00:00 10/15/2021 21:38:24 [id number] Leonidas Foley MD [facility] [address] [address] [place] [address] 03/12/2022 00:00:00 03/12/2022 21:11:53 [id number] Leonidas Foley MD [facility] [address] [place] [address] 11/16/2022 11:19:36 11/16/2022 11:55:25 Gynecologic examination 02413370 Z01.419 Family his tory of cancer of colon 658287538 Z80.0 Hypothyroidism 60326720 E03.9 Hyperlipid emia screening 443146191 Z13.220 Screening for malignant neoplasm of breast 420207920 Z12.39 [id number] Leonidas Foley MD [facility] [address] [place] [address] 11/24/2022 08:51:19 12/12/2022 04:10:15 Venereal disease screening 625991101 Z11.3 Health Concerns Section Related Observation LastModified by Organization Detai ls LastModified Time None Recorded Concern Status LastModified by Organization Details LastModified Time None Recorded Advance Directives Directive N: Payers Encounter Date Sequence Insurance Name Policy Number Policy Santos Covered Member ID Santos Member ID Guarantor Name 11/16/2022 1 [employer] [id number] [facility] [id number] [facility] 11/24/2022 1 [employer] [id number] [facility] [id number] [facility] Notes Date Note Type Note Provider Name and Address Organization Details Recorded Time 11/16/2022 text/html Here for wwe. Needs refills as needed. Last pap was a year ago and wants BW done too. Stopped all meds for thyroid. She was fainting. Since stop of meds no further passing out. Has had abnormal pap in 20s. Has an odor. No other complaints Leonidas Foley MD [facility] [address], [facility] [address], [place], [address], [facility] [employer] [facility] 11/16/2022 18:57:05 OBGyn Episode No OBEpisode recorded.
--- OUTSIDE RECORDS SUMMARY | 2024-07-20 03:09 | XMS_ITS | Referral Summary ---
Author Organization [facility] [address] [place] [id number] Care Team Providers Care Hydrodynamics Teacher Name Role Phone Leonidas Foley MD Primary Care Provider [phone]- [phone] Allergies Active Allergy Reactions Criticality Noted Date Comments Amoxicillin Shortness of breath High 10/29/2011 Aspirin Rash Medium 10/29/2011 Blueberry Hives,Rash,Swelling Medium 08/14/2021 Codeine Shortness of breath High 10/29/2011 Medications omeprazole (PriLOSEC) 20 mg capsule omeprazole 20 mg capsule,delayed release TAKE ONE CAPSULE BY MOUTH EVERY DAY Active chlorthalidone 25 mg tablet Take 25 mg by mouth daily 0 Active cyanocobalamin (Vitamin B-12) 1,000 mcg tablet cyanocobalamin (vit B-12) 1,000 mcg tablet TAKE 1 TABLET BY MOUTH EVERY DAY Active ergocalciferol (VITAMIN D) 50,000 unit capsule ergocalciferol (vitamin D2) 1,250 mcg (50,000 unit) capsule TAKE ONE CAPSULE BY MOUTH ONE TIME PER WEEK Active ibuprofen (ADVIL,MOTRIN) 600 mg tablet Take 600 mg by mouth every 6 hours as needed 2 Active methIMAzole (TAPAZOLE) 5 mg tablet Take 3 tablets (15 mg total) by mouth daily 90 tablet 4 0 Active escitalopram (LEXAPRO) 20 mg tablet 1 Active valACYclovir (VALTREX) 500 mg tablet Take 1 tablet (500 mg total) by mouth daily 90 tablet 4 2 Active Active Problems Problem Noted Date Diagnosed Date Thyrotoxicosis with toxic multinodular goiter Assessment & Plan (04/04/2019 12:38 PM HEEL PAINTER): Pathophysiology of the disease with discussed at length with the patient The differential diagnosis will include a subclinical hyperthyroidism vs hyperthyroidism from a multinodular goiter or a toxic thyroid adenoma. Thyroid carcinoma is less likely I have recommended to proceed with a thyroid uptake and scan If there is a cold or normal uptake area, will have to proceed with FNA biopsy. I have recommended to recheck thyroid function test today If the the patient has subclinical hyperthyroidism, meaning low TSH but normal free T4 and total T3 , I would probably not recommend any pharmacological intervention. The patient is that of hyperthyroidism with a low TSH and elevated free T4 and / or T3, will start thyroid suppressive therapy with Tapazole. Social History Tobacco Use Types Packs/Day Years Used Date Smoking Tobacco: Every Day Cigarettes 1 10 Smokeless Tobacco: Never Alcohol Use Standard Drinks/Week Comments Yes 0 (1 standard drink = 0.6 oz pur e alcohol) ocassionally Personal Safety Answer Date Recorded Getting School Help Needed Not on file 03/02 Comments No Sex and Gender Information Value Date Recorded Sex Assigned at Not on file Legal Sex Female 1:11 PM HEEL PAINTER Gender Identity Not on file Sexual Orientation Not on file Last Filed Vital Signs Vital Sign Reading Time Taken Comments Blood Pressure 122/84 08/14/2021 2:19 PM CDT Pulse 72 04/04/2019 9:13 AM HEEL PAINTER Temperature - - Respiratory Rate 14 04/04/2019 9:13 AM HEEL PAINTER Oxygen Saturation - - Inhaled Oxygen Concentration - - Weight 121.6 kg (268 lb) 08/14/2021 2:19 PM CDT Height 175.3 cm (5' 9) 08/14/2021 2:19 PM CDT Body Mass Index 39.58 08/14/2021 2:19 PM CDT Plan of Treatment Not on file Procedures Procedure Name Priority Date/Time Associated Diagnosis Comments HEPATITIS C ANTIBODY Routine 08/14/2021 2:48 PM CDT Screening for STD (sexually transmitted disease) PAP AND HIGH RISK HPV, REFLEX TO GENOTYPING Routine 07/05/2020 12:03 PM CDT Well woman exam with routine gynecological exam Screening for malignant neoplasm of cervix Screening for HPV (human papillomavirus) from Last 3 Months or Most Recently Relevant to Health Maintenance Results * Hepatitis C antibody (08/14/2021 2:48 PM CDT) Hep C Ab Nonreactive Nonreactive [facility] Comment: Interpretive Data Nonreactive: Antibodies to HCV not detected. Does NOT exclude the possibility of recent exposure to HCV. Equivocal: Equivocal for HCV antibodies. Supplemental molecular testing will be automatically performed to determine infection status in accordance with current CDC screening recommendations. Reactive: Positive for HCV antibodies. This may represent current or past HCV infection. Supplemental molecular testing will be automatically performed to determine current infection status in accordance with current CDC screening recommendations. Interpretive data was last revised on 2019. Blood 08/14/2021 2:48 PM CDT 08/14/2021 6:21 PM CDT Den Armenta IV, MD LAB MICROBIOLOGY - GEN ERAL ORDERABLES Edited Result - Final [facility] [place] [id number] [facility] Department [place] [address] * Pap and High Risk HPV, reflex to Genotyping (07/05/2020 12:03 PM CDT) Swab (Pap test) 07/05/2020 1 2:03 PM CDT 07/08/2020 1:10 PM CDT Narrative PATHOLOGY [facility] - 07/09/2020 4:16 PM CDT EPIC results best viewed via link to PDF [place] [id number] [place], [place] [address] Tele: Elzbieta Dixon MD - Drip Box Tender CYTOLOGY REPORT Patient Name: PRADIP HALE Address: [address] [place] [address] Gender: F : 1975 (Age: 44) Service: Laboratory Location: Lab [facility] #: [id number] Patient Type: [facility] Lab Taken: 07/05/2020 Reported: 07/09/2020 Physician(s): Davonte Armenta M.D. FINAL DIAGNOSIS: Specimen Type: - ThinPrep Pap and HPV w/ reflex Genotyping Statement of Specimen Adequacy: Source: Cervical/Endocervical - Satisfactory for interpretation - Endocervical/Transformation zone component absent or insufficient - Case screened using computer assisted imaging technology and manually re- screened by a manual machinist. General Categorization: - Negative for intraepithelial lesion or malignancy Interpretation: - Hyperkeratosis - Anucleated squamous cells present - Shift in tiffanie suggestive of Bacterial Vaginosis alld/07/09/2020 16:16 OSCAR Arellano(ASCP)GHASSAN Report Reviewed and Electronically Signed By EB ArellanoASCDesean)GHASSAN Clerical Data Follow A; G0145 DIAGNOSIS COMMENT: Ancillary Testing: HPV High Risk Group (16, 18, 31, 33, 35, 39, 45, 51, 52, 56, 58, 59, 66 and 68) - Not Detected Reference Range: Not Detected This test was performed using the DELILAH 4800 CLINICAL DIAGNOSIS AND HISTORY Last Menstrual Period: 06/12 REPORT IMAGES AND/OR SCANNED DOCUMENTS ONLY VIEWABLE IN PDF FORMAT The Pap test is a screening test used to aid in the detection of cervical cancer and its precursors. It should not be the sole means by which malignant and premalignant lesions are diagnosed. Both false negative and false positive results may occur. It also has poor sensitivity for the detection of endometrial lesions and should not be used to evaluate suspected endometrial abnormalities. For these reasons it is most important to obtain Pap tests at regular intervals, as recommended by your physician or nurse practitioner. us Den Armenta IV, MD LAB CYTOLOGY ORDERABLE S Final Result PATHOLOGY [facility] Laboratory Receiving [address] [place] [address] from Last 3 Months or Most Recently Relevant to Health Maintenance Insurance [employer] ACCESS OOS [employer] Care Teams Hydrodynamics Teacher Relationship Specialty Start Date End Date Leonidas Foley MD [facility] [address] PCP - General Family Medicine 03/28/19
--- OUTSIDE RECORDS SUMMARY | 2024-07-20 03:09 | XMS_ITS | Clinical Summary ---
Author Organization [facility] [address] [place] [id number] Care Team Providers Care Apartment Community Manager Name Role Phone Leonidas Foley MD Primary Care Provider [phone]- [phone] Allergies Active Allergy Reactions Criticality Noted Date [...] goiter Assessment & Plan (04/04/2019 12:38 PM TECHNICAL MAINTENANCE TECHNICIAN): Pathophysiology of the disease with discussed at [...] will start thyroid suppressive therapy with Tapazole. Surgical History Surgery Date Site/Laterality Comments GASTRIC RESTRICTION SURGERY KNEE SURGERY 02/22/1993 - 02/21/1994 Left Arthroscopic DEEP NECK LYMPH NODE BIOPSY / EXCISION 02/22/2001 - 02/21/2002 D&C FIRST TRIMESTER / TX INCOMPLETE / MISSED / SEPTIC / INDUCED 02/22/2010 - 02/21/2011 Miscarriage ESSURE TUBAL LIGATION 02/22/2015 - 02/22/2016 Medical History Medical History Date Comments Anxiety Fatigue Hypertension Hot flashes History of fainting History of herpes genitalis Family History Medical History Relation Name Comments Hypertension Brother 1 Hypertension Brother 2 Hypertension Father Diabetes Maternal Grandfather Prostate cancer Maternal Grandfather Diabetes Maternal Grandmother Depression Mother Heart disease Mother Hypertension Mother Hypertension Sister Relation Name Status Comments Brother 1 Brother 2 Alive Father Maternal Grandfather Maternal Grandmother Mother Sister Social History Tobacco Use Types Packs/Day Years [...] on file Legal Sex Female 1:11 PM TECHNICAL MAINTENANCE TECHNICIAN Gender Identity Not on file Sexual Orientation Not on file Obstetrics History Para Term AB IAB SAB Ectopic Multiple Livin g Live Births 6 4 4 2 1 3 4 Date Outcome GA Total Labor Labor/2nd/3rd Weight Sex Type Anes PTL Nakita A1 A5 Name Clin 1998 AB 1997 Term 40w 0d 3.062 kg (6 lb 12 oz) M Vag-S pont Epidur al Livin g Complications:Retained place nta 1998 Term 40w 0d 3.317 kg (7 lb 5 oz) M Vag-S pont Epidur al Neona jeromy Demis e Complications:Polyhydramnios Living Status Comments:Baby at 5 weeks 2003 Term 38w 0d 3.118 kg (6 lb 14 oz) M Vag-S pont Epidur al Livin g 2010 SAB D&C 2011 Term 39w 0d 3.232 kg (7 lb 2 oz) M Vag-S pont Epidlevi al Livin g Last Filed Vital Signs Vital Sign Reading Time Taken Comments Blood Pressure 122/84 08/14/2021 2:19 PM CDT Pulse 72 04/04/2019 9:13 AM TECHNICAL MAINTENANCE TECHNICIAN Temperature - - Respiratory Rate 14 04/04/2019 9:13 AM TECHNICAL MAINTENANCE TECHNICIAN Oxygen Saturation - - Inhaled Oxygen Concentration - - Weight 121.6 kg (268 lb) 08/14/2021 2:19 PM CDT Height 175.3 cm (5' 9) 08/14/2021 2:19 PM CDT Body Mass Index 39.58 08/14/2021 2:19 PM CDT Plan of Treatment Health Maintenance Due Date Last Done Comments Breast Cancer Screening-Mammogram 1975 Colon Cancer Screening-Colonoscopy 1975 Depression Screening 1975 Hepatitis B Screening 09/17/1993 Pneumococcal vaccine <65 (1 of 2 - PCV) 09/17/1994 Cervical Cancer Screening 07/05/2021 07/05/2020 DTaP/Tdap/Td Vaccine (2 - Td or Tdap) 10/30/202109/2011 Regular Well Visit/Exam 18-64 08/14/2022 08/14/2021, 07/05/2020 Covid-19 Vaccine ( season) 10/24/202303/2020, 06/26/2020 Influenza Vaccine (Season Ended) 2024 Hepatitis C Screening Completed 08/14/2021, 021 Procedures Procedure Name Priority Date/Time Associated Diagnosis [...] CDT) Hep C Ab Nonreactive Nonreactive [facility] Comment: Interpretive Data Nonreactive: Antibodies to [...] GEN ERAL ORDERABLES Edited Result - Final [facility] [address] [facility] Department [place] [address] * Pap and High Risk HPV, reflex to Genotyping (07/05/2020 12:03 PM CDT) Swab (Pap test) 07/05/2020 1 2:03 PM CDT 07/08/2020 1:10 PM CDT Narrative PATHOLOGY [facility] - 07/09/2020 4:16 PM CDT EPIC results best viewed via link to PDF [place] [id number] [place], [place] [address] Tele: Elzbieta Dixon MD - Products Mechanical Design Engineer CYTOLOGY REPORT Patient Name: PRADIP HALE Address: [address] [place] [address] Gender: F : 1975 (Age: 44) Service: Laboratory Location: Lab Hospital #: [id number] Patient Type: [facility] Lab Taken: 07/05/2020 Reported: 07/09/2020 Physician(s): Davonte Armenta M.D. FINAL DIAGNOSIS: Specimen Type: - ThinPrep Pap and HPV w/ reflex Genotyping Statement of Specimen Adequacy: Source: Cervical/Endocervical - Satisfactory for interpretation - Endocervical/Transformation zone component absent or insufficient - Case screened using computer assisted imaging technology and manually re- screened by a security systems installer. General Categorization: - Negative for intraepithelial lesion or malignancy Interpretation: - Hyperkeratosis - Anucleated squamous cells present - Shift in tiffanie suggestive of Bacterial Vaginosis alld/07/09/2020 16:16 OSCAR Arellano(ASCP)GHASSAN Report Reviewed and Electronically Signed By OSCAR Arellano(ASC)GHASSAN Clerical Data Follow A; G0145 DIAGNOSIS COMMENT: [...] LAB CYTOLOGY ORDERABLE S Final Result PATHOLOGY [facility] Laboratory Receiving [address] [place], [place] [id number] from Last 3 Months or Most Recently Relevant to Health Maintenance Insurance [employer] ACCESS OOS [employer] O[employer] Care Teams Apartment Community Manager Relationship Specialty Start Date End Date Leonidas Foley MD [address] [place] [address] [place] [address] PCP - General Family Medicine 03/28/19
[2024-07-20 06:45] VITALS: BP 139/87; PULSE 62; RESP 18; TEMP 36.2; O2SAT 100; BMI 42.9
[2024-07-20] MEDS: LACTATED RINGERS 1,000 ML 150 ML IV CONT (07:09)
--- NOTE | 2024-07-20 07:46 | PM.IMHP ---
H&P: HPI History of Present Illness Date/Time: 07/20/24 07:46 Chief Complaint: Screening colonoscopy Narrative: This is the patient's first colonoscopy. There are no GI symptoms and there is no family history of colorectal cancer. Review of Systems Review of Systems: All systems reviewed & are unremarkable except as noted in HPI and below PMFSH Past Medical History Medical History Continuous tobacco abuse Obesity Preop BMI 57.3. Current BMI down 37.3 GERD (gastroesophageal reflux disease) Vitamin D deficiency Anxiety and depression Hypertension Surgical History Surgical History History of tubal ligation History of lymph node biopsy benign pathology History of knee surgery History of laparoscopic cholecystectomy (~2019) History of sleeve gastrectomy (~2018) At [facility] Family History Family History Mother Hypertension Cerebrovascular accident Diabetes mellitus Father , in a house fire Cerebrovascular accident Myocardial infarction In his 50s Sibling Hypertension Social History Social History Smoking packs per day: 1 Smoking cigarettes per day: 20.0 Years smoked: 10 Smoking pack-years: 10.00 Smoking status: Current every day smoker Tobacco type: cigarettes Additional smoking assessment comments: She started smoking at age 30. Alcohol intake: current Drinks per week: 4 Substance use: never Substance use type: does not use Do You Feel Safe in your Home?: Yes Lack of Transportation: No Lack of Food: Never True Current Housing: I Have Housing Concerned About Future Housing: No Difficulty Paying Gas/Electric Bills: No Difficulty Paying for Meds: No Currently Unemployed: No Education: Master's Degree or Higher Difficulty w/ Childcare or Family Care: No Living arrangements: with family Additional living arrangements comments: She lives at home with her 3 sons. Ages 23, 18 in 10. She is . 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 Gender identity (if verbalized by the patient): Female Spiritual care concerns: No Meds Home Medications and Allergies Home Medications ?Medication ?Instructions ?Recorded ?Confirmed ?Type omeprazole 20 mg capsule,delayed 20 mg PO HS 02/18/21 07/20/24 History release ergocalciferol (vitamin D2) 1,250 1,250 mcg PO WEEKLY 09/24/21 07/20/24 History mcg (50,000 unit) capsule multivit with minerals-iron 18 1 tablet PO HS 09/24/21 07/20/24 History mg-folic ac 400 mcg-vit K 25 mcg tablet (Adults Multivitamin) biotin 10,000 mcg capsule 10,000 mcg PO DAILY 01/10/24 07/20/24 History escitalopram oxalate 20 mg tablet 20 mg PO HS #90 tabs 01/10/24 07/20/24 Rx hydrochlorothiazide 25 mg tablet 25 mg PO DAILY #90 tabs 01/10/24 07/20/24 Rx lactobacillus combination no.4 3 3,000 mmu cells PO DAILY 01/10/24 07/20/24 History billion cell capsule (Probiotic) valacyclovir 500 mg tablet 500 mg PO HS #90 tabs 01/10/24 07/20/24 Rx vitamin B12 1,000 mcg-folic acid 1 lisa sublingual DAILY #30 ea 01/10/24 07/20/24 Rx 400 mcg sublingual lozenge Allergies Allergy/AdvReac Type Severity Reaction Status Date / Time amoxicillin (From Amoxil) Allergy Dyspnea / Verified 07/20/24 06:52 SOB aspirin Allergy Rash Verified 07/20/24 06:52 blueberry Allergy Swelling Verified 07/20/24 06:52 codeine Allergy Dyspnea / Verified 07/20/24 06:52 SOB Vital Signs Vital Signs - 24 hr 07/20/24 06:45 Temperature 97.2 F L Pulse Rate 62 Respiratory Rate 18 Blood Pressure 139/87 Pulse Oximetry 100 Oxygen Delivery Room Air Exam Const: General: cooperative and healthy appearing Resp: Effort & Inspection: normal respiratory effort and able to speak in complete sentences Auscultation: clear to auscultation bilaterally Cardio: Rate: regular rate Rhythm: regular rhythm GI: Inspection: normal to inspection GI Palp: No No hepatosplenomegaly present Auscultation: normal bowel sounds Rectal Exam: deferred Skin: General skin exam: normal color Psych: Appearance: grossly normal Mental Status: mental status grossly normal Assessment and Plan Assessment and plan (1) Colon cancer screening: Code(s): Z12.11 - Encounter for screening for malignant neoplasm of colon Status: Acute Assessment and Plan: The patient is deemed a good candidate for the procedure. Consent signed. Will proceed.
[2024-07-20 08:14] VITALS: BP 156/94; PULSE 66; RESP 22; O2SAT 100
--- NOTE | 2024-07-20 08:23 | WPDANESEPPF ---
Anes - Initial Pre Proc Eval Procedure: Operation Date: 07/20/24 08:00 Proposed Procedures p Screening Colonoscopy - Patrice Lea MD Date/Time: 07/20/24 08:23 Surgeon: Patrice Lea MD Pre Op Diagnosis: screening malignant neoplasm colon Patient Data Age: 48 Gender: F Height: 1.78 m Weight: 135.7 kg Last Vital Signs Temp 97.2 F L 07/20/24 06:45 Pulse 66 07/20/24 08:14 Resp 22 H 07/20/24 08:14 BP 156/94 H 07/20/24 08:14 Pulse Ox 100 07/20/24 08:14 O2 Del Method Room Air 07/20/24 08:14 Allergies Allergy/AdvReac Type Severity Reaction Status Date / Time amoxicillin (From Amoxil) Allergy Dyspnea / Verified 07/20/24 06:52 SOB aspirin Allergy Rash Verified 07/20/24 06:52 blueberry Allergy Swelling Verified 07/20/24 06:52 codeine Allergy Dyspnea / Verified 07/20/24 06:52 SOB Home Medications ?Medication ?Instructions ?Recorded ?Confirmed ?Type omeprazole 20 mg capsule,delayed 20 mg PO HS 02/18/21 07/20/24 History release ergocalciferol (vitamin D2) 1,250 1,250 mcg PO WEEKLY 09/24/21 07/20/24 History mcg (50,000 unit) capsule multivit with minerals-iron 18 1 tablet PO HS 09/24/21 07/20/24 History mg-folic ac 400 mcg-vit K 25 mcg tablet (Adults Multivitamin) biotin 10,000 mcg capsule 10,000 mcg PO DAILY 01/10/24 07/20/24 History escitalopram oxalate 20 mg tablet 20 mg PO HS #90 tabs 01/10/24 07/20/24 Rx hydrochlorothiazide 25 mg tablet 25 mg PO DAILY #90 tabs 01/10/24 07/20/24 Rx lactobacillus combination no.4 3 3,000 mmu cells PO DAILY 01/10/24 07/20/24 History billion cell capsule (Probiotic) valacyclovir 500 mg tablet 500 mg PO HS #90 tabs 01/10/24 07/20/24 Rx vitamin B12 1,000 mcg-folic acid 1 lisa sublingual DAILY #30 ea 01/10/24 07/20/24 Rx 400 mcg sublingual lozenge Patient hx anesthesia problems: none Family hx anesthesia problems: none Results Review: All pre-operative results and documents have been reviewed as part of the pre-operative evaluation. [facility] Past Medical History Medical History Continuous tobacco abuse Obesity Preop BMI 57.3. Current BMI down 37.3 GERD (gastroesophageal reflux disease) Vitamin D deficiency Anxiety and depression Hypertension Surgical History Surgical History History of tubal ligation History of lymph node biopsy benign pathology History of knee surgery History of laparoscopic cholecystectomy (~2019) History of sleeve gastrectomy (~2018) At [facility] Family History Family History Mother Hypertension Cerebrovascular accident Diabetes mellitus Father , in a house fire Cerebrovascular accident Myocardial infarction In his 50s Sibling Hypertension Social History Social History Smoking packs per day: 1 Smoking cigarettes per day: 20.0 Years smoked: 10 Smoking pack-years: 10.00 Smoking status: Current every day smoker Tobacco type: cigarettes Additional smoking assessment comments: She started smoking at age 30. Alcohol intake: current Drinks per week: 4 Substance use: never Substance use type: does not use Do You Feel Safe in your Home?: Yes Lack of Transportation: No Lack of Food: Never True Current Housing: I Have Housing Concerned About Future Housing: No Difficulty Paying Gas/Electric Bills: No Difficulty Paying for Meds: No Currently Unemployed: No Education: Master's Degree or Higher Difficulty w/ Childcare or Family Care: No Living arrangements: with family Additional living arrangements comments: She lives at home with her 3 sons. Ages 23, 18 in 10. She is . 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 Gender identity (if verbalized by the patient): Female Spiritual care concerns: No Anes - Eval Final PreProcedure Day of Procedure 07/20/24 08:23 Patient weight: morbidly obese Heart: regular rate and rhythm Lungs: clear to auscultation Airway: Mallampati scale class II Neurological: alert and oriented Last oral intake: >/= 8 hours ASA classification: III Emergent: no Anesthetic plan: proceed Anesthesia type and monitoring: general GIVS and standard monitoring Results Review: All pre-operative results and documents have been reviewed as part of the pre-operative evaluation. Informed Consent: The patient's anesthetic plan and its attendant risks and benefits were discussed with the patient/family/POA. Questions were solicited and answers provided to the satisfaction of the patient/family/POA.
[2024-07-20 08:24] VITALS: BP 144/93; PULSE 61; RESP 24; O2SAT 100
[2024-07-20 08:34] VITALS: BP 151/87; PULSE 60; RESP 21; O2SAT 100
== END 2024-07-20 08:42 | disposition home or self-care (01) ==
PROVIDERS: PCP Nurse Practitioner Family; Referring Provider Nurse Practitioner Family; Visit Provider Internal Medicine Gastroenterology
PROC: 0DJD8ZZ Inspection of Lower Intestinal Tract, Via Natural or Artificial Opening Endoscopic (ICD-10-PCS; CPT 45378; principal; 2024-07-20 08:00)
DX: Z12.11 Encounter for screening for malignant neoplasm of colon (principal); I10 Essential (primary) hypertension; K21.9 Gastro-esophageal reflux disease without esophagitis; E55.9 Vitamin D deficiency, unspecified; F41.8 Other specified anxiety disorders; F17.210 Nicotine dependence, cigarettes, uncomplicated; E66.01 Morbid (severe) obesity due to excess calories; Z68.41 Body mass index [BMI] 40.0-44.9, adult; Z98.890 Other specified postprocedural states; Z98.51 Tubal ligation status; Z90.49 Acquired absence of other specified parts of digestive tract; Z98.84 Bariatric surgery status; Z82.49 Family history of ischemic heart disease and other diseases of the circulatory system
CPT/HCPCS: 45378; J2003; J2704; J7120